=== PATIENT | male | born 1970 | race Caucasian/White ===

== ENCOUNTER 2025-03-09 09:01 | Outpatient (AMB) | payer OTHER, SELFPAY ==
--- NOTE | 2025-03-09 09:01 | A.OFFPC_ITS ---
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 - Medication review Intake Note: establish care and meds review Dimension Specification Inspector Required: No Accompanied by: Self / Same As Patient Allergies prochlorperazine (From Compazine) Allergy (Mild, Verified 03/09/25 09:07) Hallucinations polypropylene Allergy (Mild, Uncoded 03/09/25 09:07) contrarest heart med Tobacco use date assessed: 03/09/25 Dental Screening Dental Screen Date: 03/09/25 Did you have a dental visit in the last 12 months?: Yes Did you have a dental problem in the last 6 months where you did not have access to dental care?: No Was dental information given to patient?: Patient has dentist HPI HPI Comments History of Present Illness Details History of Present Illness The patient is a 54-year-old male presenting for management of chronic conditions and medication refills. Narcolepsy: - The patient has narcolepsy, requiring management by a sleep specialist and use of a BiPAP machine at night. Psoriasis: - The patient has psoriasis, which has i mproved with the change in humidity after moving from [place]. Eczema: - The patient reports having eczema, whi ch has also shown improvement with the change in climate. 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 Chronic Fatigue Syndrome: - The patient experiences chronic fatigu e syndrome, limiting his ability to perform physical activities and requiring extended recovery periods after exertion. Orthostatic Intolerance: - The patient reports orthostatic intole sukhjinder, experiencing fatigue and inability to stand for long periods. Prinzmetal's Angina: - The patient has a history of Prinzmeta l's angina, managed with calcium channel blockers such as felodipine. History of Myocardial Infarction: - The patient had a myocardial infarctio n attributed to Prinzmetal's angina, with no coronary blockages identified. Health Maintenance - Blood panels ordered including CBC, co mprehensive metabolic panel, TSH, folate, B12, vitamin D, cholesterol, hepatitis B, C, and HIV screening. Review of Systems - Neurological: Reports narcolepsy, uses BiPAP at night. - Dermatological: Reports psoriasis and eczema, both improving with climate change. - Musculoskeletal: Reports inability to make a full fist due to psoriatic arthritis. - Cardiovascular: Reports history of Beena nzmetal's angina and myocardial infarction, managed with felodipine. - General: Reports chronic fatigue syndr ome and orthostatic intolerance, limiting physical activity. 10-point ROS reviewed and negative excep t as noted in HPI Past Medical History - Narcolepsy, managed with BiPAP at [facility]. - Psoriasis, improved with climate lee e. - Eczema, improved with climate change. - Psoriatic Arthritis, affecting hand fu nction. - Chronic Fatigue Syndrome, limiting phy sical activity. - Orthostatic Intolerance, causing fatig ue and inability to stand for long periods. - Prinzmetal's Angina, managed with radha dipine. - History of Myocardial Infarction, no c oronary blockages identified. Physical Exam General: Well-appearing, in no acute distress. Vital signs: Within normal limits. HEENT: Normocephalic, atraumatic. PERRLA, EOMI. Conjunctiva clear, sclera anicteric. Oropharynx clear, mucous membranes moist. TMs intact bilaterally. Neck: Supple, no lymphadenopathy, no thyromegaly, no JVD or carotid bruits. Cardiovascular: RRR, normal S1/S2, no murmurs, rubs, or gallops. Peripheral pulses 2+ and symmetric. No edema. Respiratory: Lungs clear to auscultation bilaterally, no wheezes, rales, or rhonchi. Normal effort. Abdomen: Soft, non-tender, non-distended. Normoactive bowel sounds. No hepatosplenomegaly, no masses. MSK: Full range of motion, no joint swelling or deformity. Normal gait. Skin: Warm, dry, intact. No rashes, lesions, or pallor. Neuro: Alert and oriented x3. Cranial nerves II-XII intact. Strength 5/5 throughout. Sensation intact. Reflexes 2+ symmetric. Normal coordination and gait. Psych: Appropriate mood and affect. Normal judgment and insight.General: Well- appearing, in no acute distress. Discussion Notes I discussed the patient's chronic conditions and the need for specialist referrals, including pulmonology, rheumatology, cardiology, and sleep medicine. We reviewed the importance of regular blood work to monitor his health status and medication management. I emphasized the need for follow-up appointments to ensure comprehensive care. Plan 1. Narcolepsy - Referral to a sleep specialist for isaiah oing management and BiPAP usage at night. 2. Psoriasis - Monitor skin condition and adjust thang tment as needed based on climate changes. 3. Eczema - Continue monitoring and managing sympt oms, noting improvement with climate change. 4. Psoriatic Arthritis - Referral to rheumatology for managemen t of joint symptoms and functional limitations. 5. Chronic Fatigue Syndrome - Encourage pacing of activities to emery ge fatigue and prevent exacerbation of symptoms. 6. Orthostatic Intolerance - Monitor symptoms and consider cardiolo gy referral for further evaluation. 7. Prinzmetal's Angina - Continue management with felodipine an d monitor for symptoms of angina. 8. History Of Myocardial Infarction - Regular cardiology follow-up to [facility] and prevent future events. Patient Instructions - Follow up with referred specialists fo r comprehensive management of chronic conditions. - Use the patient portal to communicate medication needs and updates. - Monitor symptoms and report any signif icant changes to your healthcare provider. [facility] Medical History (Updated 03/09/25 @ 09:20 by Gene Samayoa MD) History of PA (myocardial infarction) Uses continuous positive airway pressure (CPAP) ventilation at home Arthritis with psoriasis Chronic fatigue syndrome Prinzmetal angina Family History (Updated 03/09/25 @ 09:03 by Henrique Campos MA) Father No problems noted. Mother No problems noted. Social History Housing: Apartment Alcohol intake: current Alcohol intake frequency: does not drink Patient Tobacco Use Status: Never used Tobacco service: No Current occupational status: disabled Cognitive needs: No Hearing needs: No Vision needs: No Questionnaire PHQ-9 Over the last 2 weeks, how often have you been bothered by any of the following problems? 1. Little interest or pleasure in doing things: not at all 2. Feeling down, depressed, or hopeless: not at all 3. Trouble falling or staying asleep, or sleeping too much: not at all 4. Feeling tired or having little energy: not at all 5. Poor appetite or overeating: not at all 6. Feeling bad about yourself - or that you are a failure or have let yourself or your family down: not at all 7. Trouble concentrating on things, such as reading the newspaper or watching television: not at all 8. Moving or speaking so slowly that other people could have noticed. Or the opposite - being so fidgety or restless that you have been moving around a lot more than usual: not at all 9. Thoughts that you would be better off or of hurting yourself in some way: not at all Total score: 0 Depression Screening Interpretation: Negative Depression Screening Done: Yes Source: Developed by Drs. Edison Slade, Britta Brantley, Tate Hansen and colleagues, with an educational jai from [employer]. Thrive Questionnaire Date Thrive assessed: 03/07/25 I am a: Patient What is your living situation today?: I have a steady place to live Within the past 12 months, did the food you bought not last and you didn't have the money to get more?: Never true Within the past 12 months, did you worry whether your food would run out before you got money to buy more?: Never true Do you have trouble paying for medicines?: No Do you have trouble getting transportation to medical appointments?: No Do you have trouble paying your heating and electricity bill?: No Do you have trouble taking care of your child, family member or friend?: No Do you have trouble with day-to-day activities such as bathing, preparing meals, shopping, managing finances, etc.?: Yes Are you currently unemployed and looking for a job?: I choose not to answer this question Are you interested in more education?: No THRIVE Score: 0 AUDIT C Alcohol Use Questionnaire (AUDIT-C) 1. How often do you have a drink containing alcohol?: Never 3. How often do you have six or more drinks on one occasion?: Never Total Score: 0 AURELIANO-7 AMB Questionnaire AURELIANO-7 Date AURELIANO - 7 assessed: 03/09/25 Feeling nervous, anxious, or on edge: 1 = Several days Not being able to stop or control worryin = Several days Worrying too much about different things: 1 = Several days Trouble relaxin = Several days Being so restless that it is hard to sit still: 0 = Not at all Becoming easily annoyed or irritable: 1 = Several days Feeling afraid as if something awful might happen: 1 = Several days Total AURELIANO-7 score (0-4 normal; 5-9 mild; 10-14 moderate; 15-21 severe): 6 Source: Developed by Drs. Edison Slade, Britta Brantley, Tate Hansen and colleagues, with an educational jai from [employer]. Physical exam (Primary Care) Tobacco/Smoking Status: Tobacco use Status Tobacco use date assessed 03/09/25 03/09/25 09:04 Patient Tobacco Use Status Never used Tobacco 03/09/25 09:04 Depression Screening Interpretation: Negative Thrive Assessment: Date of Thrive Assessment Date Thrive assessed 03/07/25 03/09/25 09:04 Coding Level of Care Code New Pt Level 3 (82555) Diagnoses Establishing care with new doctor, encounter for Z76. Routine lab draw Z01. Encounter for screening, unspecified Z13.9 Counseling, unspecified Z71.9 Screening for HIV (human immunodeficiency virus) Z11.4 Screening for depression Z13.31 Screening for diabetes mellitus Z13.1 Screening for lipoid disorders Z13.220 Hypertension screen Z13.6 Class 2 obesity E66.812 Prinzmetal angina I20.1 Chronic fatigue syndrome G93.32 Arthritis with psoriasis L40.50 Uses continuous positive airway pressure (CPAP) ventilation at home Z99.89 Narcolepsy G47.419 History of PA (myocardial infarction) I25.2 Assessment & Plan Assessment & Plan (1) Establishing care with new doctor, encounter for: Code(s): Z76.89 - Persons encountering health services in other specified circumstances (2) Routine lab draw: Code(s): Z01.89 - Encounter for other specified special examinations (3) Encounter for screening, unspecified: Code(s): Z13.9 - Encounter for screening, unspecified (4) Counseling, unspecified: Code(s): Z71.9 - Counseling, unspecified (5) Screening for HIV (human immunodeficiency virus): Code(s): Z11.4 - Encounter for screening for human immunodeficiency virus [HIV] (6) Screening for depression: Code(s): Z13.31 - Encounter for screening for depression (7) Screening for diabetes mellitus: Code(s): Z13.1 - Encounter for screening for diabetes mellitus (8) Screening for lipoid disorders: Code(s): Z13.220 - Encounter for screening for lipoid disorders (9) Hypertension screen: Code(s): Z13.6 - Encounter for screening for cardiovascular disorders (10) Class 2 obesity: Code(s): E66.812 - Obesity, class 2 (11) Prinzmetal angina: Code(s): I20.1 - Angina pectoris with documented spasm Category: Medical (12) Chronic fatigue syndrome: Code(s): G93.32 - Myalgic encephalomyelitis/chronic fatigue syndrome Category: Medical (13) Arthritis with psoriasis: Code(s): L40.50 - Arthropathic psoriasis, unspecified Category: Medical (14) Uses continuous positive airway pressure (CPAP) ventilation at home: Code(s): Z99.89 - Dependence on other enabling machines and devices Category: Medical (15) Narcolepsy: Code(s): G47.419 - Narcolepsy without cataplexy (16) History of PA (myocardial infarction): Code(s): I25.2 - Old myocardial infarction Category: Medical Plan Orders: Orders Complete Blood Count Auto Diff Today Z13.9 - Encounter for screening, unspecified, Z76.89 - Persons encountering health services in other specified circumstances Hemoglobin A1c Today Z13.9 - Encounter for screening, unspecified, Z76.89 - Persons encountering health services in other specified circumstances Hepatitis B Surface Antigen Today Z13.9 - Encounter for screening, unspecified, Z76.89 - Persons encountering health services in other specified circumstances HIV Ab/Ag Today Z13.9 - Encounter for screening, unspecified, Z76.89 - Persons encountering health services in other specified circumstances Lipid Panel Today Z13.9 - Encounter for screening, unspecified, Z76.89 - Persons encountering health services in other specified circumstances UA CC w/rflx Micro + Cult Today Z13.9 - Encounter for screening, unspecified, Z76.89 - Persons encountering health services in other specified circumstances Comprehensive Met. Panel Today Z13.9 - Encounter for screening, unspecified, Z76.89 - Persons encountering health services in other specified circumstances Hepatitis B Surface Antibody Today Z13.9 - Encounter for screening, unspecified, Z76.89 - Persons encountering health services in other specified circumstances Hepatitis C Antibody Today Z13.9 - Encounter for screening, unspecified, Z76.89 - Persons encountering health services in other specified circumstances Vitamin B12 and Folate Today Z13.9 - Encounter for screening, unspecified, Z76.89 - Persons encountering health services in other specified circumstances Vitamin D 1,25 dihydroxy Today Z13.9 - Encounter for screening, unspecified, Z76.89 - Persons encountering health services in other specified circumstances Referrals Rheumatology Referral G93.32 - Myalgic encephalomyelitis/chronic fatigue syndrome, L40.50 - Arthropathic psoriasis, unspecified Cardiology Referral I20.1 - Angina pectoris with documented spasm, I25.2 - Old myocardial infarction Pulmonology Referral G47.419 - Narcolepsy without cataplexy, Z99.89 - Dependence on other enabling machines and devices Sleep Medicine Referral G47.419 - Narcolepsy without cataplexy, G93.32 - Myalgic encephalomyelitis/chronic fatigue syndrome, Z99.89 - Dependence on other enabling machines and devices
[2025-03-09 09:10] VITALS: BP 108/80; PULSE 78; RESP 16; TEMP 36.8; O2SAT 95; BMI 36.2
== END 2025-03-09 09:35 | disposition home or self-care (01) ==
LOC: HO.HMCFMS 09:02
PROVIDERS: PCP Student in an Organized Health Care Education/Training Program; Visit Provider Student in an Organized Health Care Education/Training Program
DX: E66.812 Obesity, class 2 (principal); I20.1 Angina pectoris with documented spasm; G93.32 Myalgic encephalomyelitis/chronic fatigue syndrome; L40.50 Arthropathic psoriasis, unspecified; Z99.89 Dependence on other enabling machines and devices; G47.419 Narcolepsy without cataplexy; I25.2 Old myocardial infarction

== ENCOUNTER 2025-03-09 09:01 | Outpatient (REF) | payer OTHER, SELFPAY ==
--- OUTSIDE RECORDS SUMMARY | 2025-03-09 11:44 | XMS_ITS | Encounter Summary ---
Author Organization [facility] Address [address] [place] [address] Phone Care Team Providers Care Hammer Fitter Name Role Phone Pcp, Unknown Primary Care Provider Unavailabl e Reason for Referral * MRI/CAT Scan - Closed Specialty Diagnoses / Procedures Referred By Contac t Referred To Contact Radiology Diagnoses Adrenal mass Procedures MRI Abdomen System, Provider Not In, PhD [employer] [address] Referral ID Status Reason Start Date Expiration Date Visits Re quested Visits Authorized [id number] Closed 12/14/2024 12/14/2025 1 1 Encounter Details Date Type Department Care Team (Late st Contact Info) Description 12/14/2024 Transcribe Orders [facility] Department [address] [place] [id number] System, Provider Not In, PhD [address] [address] Adrenal mass (Primary Dx) Social History Tobacco Use Types Packs/Day Years Used Date Smoking Tobacco: Never Assessed Sex and Gender Information Value Date Recorded Sex Assigned at Not on file Legal Sex Male 4:13 PM EDT Gender Identity Not on file Sexual Orientation Not on file documented as of this encounter Plan of Treatment Not on file documented as of this encounter Results * MRI ABDOMEN WITH AND WITHOUT CONTRAST (01/07/2025 7:45 AM EDT) Anatomical Region Laterality Modality Abdomen Magnetic Resonan ce 01/17/2025 9:25 AM EDT Impressions 01/17/2025 9:33 AM EDT 2.6 cm benign, lipid rich right adrenal adenoma. Narrative 01/17/2025 9:33 AM EDT MRI ABDOMEN WITH AND WITHOUT CONTRAST Referring clinician's provided indication for this examination in [facility]: Outside Radiology Order; adrenal mass Review of the Electronic Medical Record reveals an additional history of: Outside CT coronary angiography 06/29/2023 describes a 2.5 cm right adrenal adenoma. TECHNIQUE: Multiplanar MR imaging of the abdomen was performed using T1, T2, fat saturated, and diffusion weighted techniques. Dynamic multiphase imaging was also performed after administration of an intravenous gadolinium contrast agent. COMPARISON: None FINDINGS: Lower Chest: No effusions. Liver: 14 mm right lobe hepatic hemangioma (4:15; 13:40). No suspicious liver lesions. Biliary: Cholecystectomy. No biliary ductal dilatation. Spleen: No splenomegaly or focal lesion. Pancreas: No masses or ductal dilatation. Adrenal Glands: 2.6 x 2.4 cm right adrenal nodule with signal loss on chemical shift imaging consistent with a benign lipid rich adenoma. Normal left adrenal. Kidneys/Ureters: Punctate right renal cyst. No solid mass or hydronephrosis. Bowel: No dilatation or wall thickening. Small hiatal hernia. Peritoneum/Retroperitoneum: No masses or fluid. Lymph Nodes: No lymphadenopathy. Vessels: No abdominal aortic aneurysm. Patent portal vein. Replaced left hepatic artery arising from the left gastric. Bones/Soft Tissues: No focal marrow replacing lesions. Procedure Note Sumeet Foley MD - 01/17/2025 MRI ABDOMEN WITH AND WITHOUT CONTRAST Referring clinician's provided indication for this examination in Epic:Outside Radiology Order; adrenal mass Review of the Electronic Medical Record reveals an additional history of:Outside CT coronary angiography 06/29/2023 describes a 2.5 cm right adrenaladenoma. TECHNIQUE: Multiplanar MR imaging of the abdomen was performed using T1,T2, fat saturated, and diffusion weighted techniques. Dynamic multiphaseimaging was also performed after administration of an intravenousgadolinium contrast agent. COMPARISON: None FINDINGS: Lower Chest: No effusions. Liver: 14 mm right lobe hepatic hemangioma (4:15; 13:40). No suspiciousliver lesions. Biliary: Cholecystectomy. No biliary ductal dilatation. Spleen: No splenomegaly or focal lesion. Pancreas: No masses or ductal dilatation. Adrenal Glands: 2.6 x 2.4 cm right adrenal nodule with signal loss onchemical shift imaging consistent with a benign lipid rich adenoma. Normalleft adrenal. Kidneys/Ureters: Punctate right renal cyst. No solid mass orhydronephrosis. Bowel: No dilatation or wall thickening. Small hiatal hernia. Peritoneum/Retroperitoneum: No masses or fluid. Lymph Nodes: No lymphadenopathy. Vessels: No abdominal aortic aneurysm. Patent portal vein. Replaced lefthepatic artery arising from the left gastric. Bones/Soft Tissues: No focal marrow replacing lesions. IMPRESSION: 2.6 cm benign, lipid rich right adrenal adenoma. us Provider Not In System PhD IMG MR ABDOMEN Final Result documented in this encounter Visit Diagnoses Diagnosis Adrenal mass- Primary Unspecified disorder of adrenal glands Adrenal mass Unspecified disorder of adrenal glands documented in this encounter Care Teams Hammer Fitter Relationship Specialty Start Date End Date Pcp, Unknown PCP - General 12/09/24 documented as of this encounter Additional Source Comments The information contained in this document represents components of the legal health record. It is not the complete legal health record.[facility]
--- OUTSIDE RECORDS SUMMARY | 2025-03-09 11:44 | XMS_ITS | Clinical Summary ---
Author Organization [facility] Address [address] [place] [address] Phone Care Team Providers Care Telecommunications Field Engineer Name Role Phone Pcp, Unknown Primary Care Provider Unavailabl e Allergies Active Allergy Reactions Criticality Noted Date Comments Prochlorperazine Mental Status Change High Encounters Date Type Department Care Team Description 01/07/2025 6:47 AM EDT - 01/07/2025 11:59 PM EDT Hospital Encounter [address] [address] System, Provider Not In, PhD Unknown, Unknown, MD Discharge Disposition: Home or Self Care 12/14/2024 Procedure Pass [address] [address] 12/14/2024 Transcribe Orders Virtual Department [address] [place] [id number] System, Provider Not In, PhD Adrenal mass (Primary Dx) from Last 3 Months Social History Tobacco Use Types Packs/Day Years Used Date Smoking Tobacco: Never Assessed Education Answer Date Recorded Are you interested in more education? Not on zachary e 12/20/2024 Are you concerned about learning? Not on file 12/20/2024 No 12/20/2024 No 12/20/2024 Digital Access Answer Date Recorded No 12/20/2024 No 12/20/2024 Reliable internet access at home? Not on file 12/20/2024 Device with a working camera? Not on file Sex and Gender Information Value Date Recorded Sex Assigned at Not on file Legal Sex Male 4:13 PM EDT Gender Identity Not on file Sexual Orientation Not on file Last Filed Vital Signs Vital Sign Reading Time Taken Comments Blood Pressure - - Pulse - - Temperature - - Respiratory Rate - - Oxygen Saturation - - Inhaled Oxygen Concentration - - Weight 120.2 kg (265 lb) 01/01/2025 10:34 AM EDT Height 180.3 cm (5' 11 ) 01/01/2025 10:34 AM EDT Body Mass Index 36.96 01/01/2025 10:34 AM EDT Plan of Treatment Not on file Medical Devices Not on file Procedures Procedure Name Priority Date/Time Associated Diagnosis Comments MRI ABDOMEN WITH AND WITHOUT CONTRAST Routine 01/07/2025 7:45 AM EDT Adrenal mass from Last 3 Months Results * MRI ABDOMEN WITH AND WITHOUT CONTRAST (01/07/2025 7:45 AM EDT) Anatomical Region Laterality Modality Abdomen Magnetic Resonan ce 01/17/2025 9:25 AM EDT Impressions 01/17/2025 9:33 AM EDT 2.6 cm benign, lipid rich right adrenal adenoma. Narrative 01/17/2025 9:33 AM EDT MRI ABDOMEN WITH AND WITHOUT CONTRAST Referring clinician's provided indication for this examination in Epic: Outside Radiology Order; adrenal mass Review of [...] System PhD IMG MR ABDOMEN Final Result from Last 3 Months [facility] [address] [place] [id number] MEDICARE PART A & B 1 [address] Dozier [id number] MEDICARE PART A & B 1 [address]IDA Dozier [id number] MEDICARE PART A & B MEDICARE PART A & B MEDICARE PART A & B MEDICARE PART A & B Care Teams Telecommunications Field Engineer Relationship Specialty Start Date End Date Pcp, Unknown PCP - General 12/09/24 Additional Source Comments The information contained in this document represents components of the legal health record. It is not the complete legal health record.[facility]
--- OUTSIDE RECORDS SUMMARY | 2025-03-09 11:44 | XMS_ITS | Encounter Summary ---
Author Organization [facility] Address [address] [place] [address] Phone Care Team Providers Care Stator Winder Name Role Phone Pcp, Unknown Primary Care Provider Unavailabl e Encounter Details Date Type Department Care Team (Late st Contact Info) Description 12/14/2024 Procedure Pass [facility], [address] [address] Social History Tobacco Use Types Packs/Day Years Used Date Smoking Tobacco: Never Assessed Sex and Gender Information Value Date Recorded Sex Assigned at Not on file Legal Sex Male 4:13 PM EDT Gender Identity Not on file Sexual Orientation Not on file documented as of this encounter Plan of Treatment Not on file documented as of this encounter Visit Diagnoses Not on filedocumented in this encounter Care Teams Stator Winder Relationship Specialty Start Date End Date Pcp, Unknown PCP - General 12/09/24 documented as of this encounter Additional Source Comments The information contained in this document represents components of the legal health record. It is not the complete legal health record.[facility]
[2025-03-09 13:26] LABS: Appearance Urine Clear; Glucose Urine UA Negative (Negative); PH 5.5 (5.0-9.0); Specific Gravity - Urine 1.015 (1.005-1.025)
[2025-03-09 13:43] LABS: MANUAL DIFF FLAG NO
[2025-03-09 13:48] LABS: Hematocrit 49.1 % (42.0-52.0); Hemoglobin 16.1 g/dl (14.0-18.0); Imm Gran Abs Auto 0.02 X10*3/uL (0.00-0.03); Imm Gran Pct Auto 0.3 % (0.0-0.4); Lymphocytes Absolute Auto 1.1 X10*3/uL (1.2-4.9); Mean Corpuscular HGB Conc 32.8 g/dl (31.0-36.0); Mean Corpuscular Hemoglobin 28.5 pg (27.0-33.0); Mean Corpuscular Volume 86.9 fL (80.0-98.0); NRBC Abs Auto 0.000 X10*3/uL (0.0-0.012); NRBC Pct Auto 0.0 /100WBC (0.0-0.2); Platelet Count 267 X10*3/uL (160-400); Red Blood Count 5.65 X10*6/uL (4.60-5.80); White Blood Count 7.5 X10*3/uL (4.8-10.8)
[2025-03-09 14:09] LABS: Alanine Aminotransferase 65 U/L (0-40); Albumin Level 4.4 g/dL (3.5-5.0); Alkaline Phosphatase 157 U/L (39-117); Anion Gap 11 (12-20); Aspartate Amino Transferase 35 U/L (5-37); Blood Urea Nitrogen 11 mg/dL (9-16); Calcium 9.0 mg/dL (8.4-10.2); Carbon Dioxide 29 mmol/L (22-29); Chloride 105 mmol/L (96-108); Cholesterol 128 mg/dL (<200); Estimated Glomerular Filt Rate > 60; HDL Cholesterol 40 mg/dL (>40); Potassium 4.1 mmol/L (3.3-5.1); Sodium 141 mmol/L (135-145); Total Protein 7.5 g/dL (6.5-8.0); Triglycerides 129 mg/dL (<150)
[2025-03-09 14:30] LABS: Folate 12.8 ng/mL (> or = 4.0); Vitamin B12 702 pg/mL (200-900)
[2025-03-10 08:32] LABS: HBS Num1 0.82 mIU/mL (0-7.99); HBsAGNum1 0.36 S/CO (0.00-0.99); HIV Num 1 0.04 S/CO (0.00-0.99); Hepatitis B Surface Antigen Negative (Negative); ~HepC Num1 0.09 S/CO (0.00-0.79); ~Hepatitis B Surface Antibody NONREACTIVE (Nonreactive); ~Hepatitis C Antibody Nonreactive (Nonreactive)
[2025-03-14 19:59] LABS: VITAMIN D (1,25 OH) D3 66 pg/mL; Vit D (1,25-Dihydroxy) Total 66 pg/mL (18-72); Vitamin D (1,25 OH) D2 <8 pg/mL
== END 2025-03-09 09:02 | disposition home or self-care (01) ==
LOC: HO.HKASLDS 09:01
PROVIDERS: PCP Student in an Organized Health Care Education/Training Program; Visit Provider Student in an Organized Health Care Education/Training Program
DX: Z76.89 Persons encountering health services in other specified circumstances (principal); Z01.89 Encounter for other specified special examinations; Z13.9 Encounter for screening, unspecified; Z71.9 Counseling, unspecified; Z11.4 Encounter for screening for human immunodeficiency virus [HIV]; Z13.31 Encounter for screening for depression; Z13.1 Encounter for screening for diabetes mellitus; Z13.220 Encounter for screening for lipoid disorders; Z13.6 Encounter for screening for cardiovascular disorders; E66.812 Obesity, class 2; I20.1 Angina pectoris with documented spasm; G93.32 Myalgic encephalomyelitis/chronic fatigue syndrome; L40.50 Arthropathic psoriasis, unspecified; Z99.89 Dependence on other enabling machines and devices; G47.419 Narcolepsy without cataplexy; I25.2 Old myocardial infarction
CPT/HCPCS: 36415; 80053; 80061; 81003; 82607; 82652; 82746; 83036; 85025; 86706; 86803; 87340; 87389; 96127

== ENCOUNTER 2025-03-10 10:17 | Outpatient (AMB) | payer OTHER, SELFPAY ==
[2025-03-10 10:31] VITALS: BP 100/60; PULSE 68; TEMP 36.9; O2SAT 98; BMI 36.6
--- NOTE | 2025-03-10 10:31 | AM.OFFWIN_ITS ---
Intake Vital Signs 03/10/25 10:31 Height 6 ft Weight 270 lb BMI 36.6 BP 100/60 Blood Pressure Location Lt brachial Position Sitting Pulse 68 Pulse Source Pulse Oximeter Temp 98.5 F Temp Source Oral Pulse Oximetry (%) 98 Oxygen Delivery Method Room Air Intake Visit Reasons: ep sore throat and fatigue cough Intake Note: pt presents with sore throat x3 days, fatigue and cough Patient Tobacco Use Status: Never used Tobacco Allergies prochlorperazine (From Compazine) Allergy (Mild, Verified 03/09/25 09:07) Hallucinations polypropylene Allergy (Mild, Uncoded 03/09/25 09:07) contrarest heart med Do you need a note to return to daycare/school/sports/work: No HPI HPI Comments History of Present Illness Details History - The patient is a 54-year-old male pres enting with a sore throat and cough. - The sore throat began a few days ago a nd has been persistent, leading to a subsequent cough. - The patient uses a BIPAP machine at [facility], which has made breathing more difficult due to the cough. - There is significant fluid accumulatio n in both ears, which is causing discomfort and potential infection risk. - The patient denies fever, sinus pain, and ear pain, but reports productive cough. - The patient has orthostatic intoleranc e, requiring static exercises and extended recovery time after physical activity. Physical Exam General: Cooperative, healthy appearing, comfortable and no acute distress Orientation/consciousness: Patient oriented x3 Limitations: No limitations Head: Normal to inspection Ears: Hearing grossly normal bilaterally, EAC normal bilaterally, TM's with fluid bilaterally R>L Nose: Normal external nose present, Normal nares present and No nasal discharge present Face and sinus: Normal facial exam and Yes sinuses nontender Mouth: Normal oral and palatal mucosa present and moist mucous membranes Throat: Yes tonsils normal, Yes uvula midline. Posterior oropharynx erythema, no exudates Eyes: Appearance normal, both eyes and all related structures Neck: Normal visual inspection, full ROM Respiratory: Clear to auscultation bilaterally. Normal respiratory effort, able to speak in complete sentences, not actively coughing, no respiratory distress, not tachypneic, no tripod positioning and no use of accessory muscles Cardiovascular: Regular rate and rhythm. Normal S1 and S2 Skin: No rashes or lesions noted Neuro: Patient oriented x3 Extremities: Normal to inspection and Yes no clubbing, cyanosis or edema Review of Systems - Respiratory: Reports sore throat and p roductive cough. Denies dyspnea, fever, and sinus pain. - Ears: Denies ear pain. All systems reviewed and are unremarkable except as noted in HPI and above [facility] Medical History (Updated 03/10/25 @ 11:00 by Margret Rios PA-C) History of [place] (myocardial infarction) Uses continuous positive airway pressure (CPAP) ventilation at home Arthritis with psoriasis Chronic fatigue syndrome Prinzmetal angina Family History (Updated 03/09/25 @ 09:03 by Henrique Campos MA) Father No problems noted. Mother No problems noted. Social History (Updated 03/09/25 @ 09:09 by Henrique Campos MA) Housing: Apartment Alcohol intake: current Alcohol intake frequency: does not drink Patient Tobacco Use Status: Never used Tobacco service: No Current occupational status: disabled Cognitive needs: No Hearing needs: No Vision needs: No Physical Exam Vital Signs: Last Vital Signs Temp 98.5 F 03/10/25 10:31 Pulse 68 03/10/25 10:31 BP 100/60 03/10/25 10:31 Pulse Ox 98 03/10/25 10:31 Oxygen Delivery Method Room Air 03/10/25 10:31 BMI result Body Mass Index 36.6 Assessment & Plan Assessment & Plan (1) URI, acute: Code(s): J06.9 - Acute upper respiratory infection, unspecified Plan: Plan Patient was informed and verbally consented to the use of an ambient scribe for clinic note documentation during this visit. VSS, pt well appearing and PE remarkable for . 1. Viral Upper Respiratory Infection - A respiratory panel was conducted to identify the specific virus. - The patient was advised to use Flonase nasal spray to help clear nasal congestion and fluid in the ears. - Zyrtec was recommended for daily use to manage allergy symptoms. - Can add a decongestant if needed, other OTC meds for symptoms. - Work note declined. - The patient was advised to follow up with their primary care physician to assess resolution though this could take many weeks to resolve. Orders: Orders Resp Pathogen Panel - [facility] [place] Today J06.9 - Acute upper respiratory infection, unspecified Coding Level of Care Code Est Pt Level 3 (69262) Diagnoses URI, acute J06.9
--- OUTSIDE RECORDS SUMMARY | 2025-03-10 10:51 | XMS_ITS | Clinical Summary ---
Author Organization [facility] Address [address] [place] [address] Phone Care Team Providers Care Pipe Joints Supervisor Name Role Phone Pcp, Unknown Primary Care Provider Unavailabl e Allergies Active Allergy Reactions Criticality Noted Date Comments Prochlorperazine Mental Status Change High Encounters Date Type Department Care Team Description 01/07/2025 6:47 AM EDT - 01/07/2025 11:59 PM EDT Hospital Encounter [address] [address] System, Provider Not In, PhD Unknown, Unknown, MD Discharge Disposition: Home or Self Care 12/14/2024 Procedure Pass [address] [address] 12/14/2024 Transcribe Orders Virtual Department [address] [place] [id number] System, Provider Not In, PhD Adrenal mass [...] Result from Last 3 Months [facility] [address] [place] [id number] MEDICARE PART A & B 1 LIDA Dozier [id number] MEDICARE PART A & B 1 LIDA Dozier [id number] MEDICARE PART A & B MEDICARE PART A & B MEDICARE PART A & B MEDICARE PART A & B Care Teams Pipe Joints Supervisor Relationship Specialty Start Date End Date Pcp, Unknown PCP - General 12/09/24 Additional Source Comments The information contained in this document represents components of the legal health record. It is not the complete legal health record.[facility]
--- OUTSIDE RECORDS SUMMARY | 2025-03-10 10:51 | XMS_ITS | Encounter Summary ---
Author Organization [facility] Address [address] [place] [address] Phone Care Team Providers Care Maintenance Mechanic Millwright Name Role Phone Pcp, Unknown Primary Care Provider Unavailabl e Reason for Referral * MRI/CAT Scan - Closed Specialty Diagnoses / Procedures Referred By Contac t Referred To Contact Radiology Diagnoses Adrenal mass Procedures MRI Abdomen System, Provider Not In, PhD [facility] [address] [address] Referral ID Status Reason Start Date Expiration Date Visits Re quested Visits Authorized [id number] Closed 12/14/2024 12/14/2025 1 1 Encounter Details Date Type Department Care Team (Late st Contact Info) Description 12/14/2024 Transcribe Orders [facility] Department [address] [place] [address] System, Provider Not In, PhD [address] [address] Adrenal mass (Primary Dx) Social History Tobacco [...] clinician's provided indication for this examination in [facility]: Outside Radiology Order; adrenal mass Review of [...] glands documented in this encounter Care Teams Maintenance Mechanic Millwright Relationship Specialty Start Date End Date Pcp, Unknown PCP - General 12/09/24 documented as of this encounter Additional Source Comments The information contained in this document represents components of the legal health record. It is not the complete legal health record.[facility]
--- OUTSIDE RECORDS SUMMARY | 2025-03-10 10:51 | XMS_ITS | Encounter Summary ---
Author Organization [facility] Address [address] [place] [address] Phone Care Team Providers Care Optical Effects Layout Person Name Role Phone Pcp, Unknown Primary Care Provider Unavailabl e Encounter Details Date Type Department Care Team (Late st Contact Info) Description 12/14/2024 Procedure Pass [facility], [address] [address] Social History Tobacco Use Types Packs/Day Years [...] on filedocumented in this encounter Care Teams Optical Effects Layout Person Relationship Specialty Start Date End Date Pcp, Unknown PCP - General 12/09/24 documented as of this encounter Additional Source Comments The information contained in this document represents components of the legal health record. It is not the complete legal health record.[facility]
== END 2025-03-10 11:00 | disposition home or self-care (01) ==
PROVIDERS: PCP Student in an Organized Health Care Education/Training Program; Visit Provider Physician Assistant
DX: J06.9 Acute upper respiratory infection, unspecified (principal)

== ENCOUNTER 2025-03-10 10:17 | Outpatient (REF) | payer OTHER, SELFPAY ==
[2025-03-10 14:45] LABS: Chlamydia pneumoniae PCR Not Detected (Not Detect.); Coronavirus 229E PCR Not Detected (Not Detect.); Coronavirus HKU1 PCR Not Detected (Not Detect.); Coronavirus NL63 PCR Not Detected (Not Detect.); Coronavirus OC43 PCR Not Detected (Not Detect.); RSV PCR Not Detected (Not Detect.); Rhino/Enterovirus PCR Detected (Not Detect.)
[2025-03-10 14:59] LABS: Influenza A H1 PCR Not Detected (Not Detect.); Influenza A H1-2009 PCR Not Detected (Not Detect.); Influenza A H3 PCR Not Detected (Not Detect.); SARS-CoV-2 PCR Not Detected (Not Detect.)
== END 2025-03-10 10:18 | disposition home or self-care (01) ==
LOC: HO.LAB 10:17
PROVIDERS: PCP Student in an Organized Health Care Education/Training Program; Visit Provider Physician Assistant
DX: J06.9 Acute upper respiratory infection, unspecified (principal); J02.9 Acute pharyngitis, unspecified; R05.9 Cough, unspecified
CPT/HCPCS: 87633

== ENCOUNTER 2025-03-16 09:44 | Outpatient (AMB) | payer OTHER, SELFPAY ==
[2025-03-16 09:56] VITALS: BP 115/71; PULSE 71; RESP 16; TEMP 36.9; O2SAT 95; BMI 36.1
--- NOTE | 2025-03-16 09:56 | A.OFFPC_ITS ---
Vital Signs 03/16/25 09:56 Height 6 ft Weight 266 lb 4 oz BMI 36.1 BP 115/71 Blood Pressure Location Rt brachial Position Sitting Respiration 16 Pulse 71 Pulse Source Pulse Oximeter Temp 98.5 F Temp Source Oral Pulse Oximetry (%) 95 Oxygen Delivery Method Room Air Intake Visit Reasons: 1 week follow up Intake Note: establish care and meds review Desizing Machine Operator Head End Required: No Accompanied by: Self / Same As Patient Allergies prochlorperazine (From Compazine) Allergy (Mild, Verified 03/16/25 10:03) Hallucinations polypropylene Allergy (Mild, Uncoded 03/09/25 09:07) contrarest heart med Tobacco use date assessed: 03/09/25 Dental Screening Dental Screen Date: 03/09/25 Did you have a dental visit in the last 12 months?: Yes Did you have a dental problem in the last 6 months where you did not have access to dental care?: No Was dental information given to patient?: Patient has dentist HPI HPI Comments History of Present Illness Details History of Present Illness The patient is a 54-year-old male presenting for follow-up on lab results and management of plantar fasciitis He is accompanied with his Plantar fasciitis: - The patient has been experiencing plan tar fasciitis for about six weeks, with severe pain exacerbated by prolonged walking. - Despite daily exercises and Advil use, symptoms persist, prompting a referral to podiatry. Prediabetes: - The patient's A1c is 6.3%, indicating prediabetes, with dietary changes advised to lower carbohydrate intake. - Previous slip tender consultations have informed the patient's dietary management strategies. Type 2 diabetes mellitus: - The patient has type 2 diabetes [facility], with an A1c of 6.3%, managed with intermittent Ozempic use which was not mentioned on the initial visit Elevated liver enzymes: - Elevated liver enzymes, ALT at 65 U/L and alkaline phosphatase at 157 U/L, warrant an abdominal ultrasound to rule out biliary issues. Review of Systems - Musculoskeletal: Reports severe stabbi ng pain in the foot, exacerbated by prolonged walking. - Endocrine: Reports awareness of dietar y restrictions due to prediabetes. - Gastrointestinal: Denies colic pain af ter eating. 10-point ROS reviewed and negative excep t as noted in HPI Past Medical History - Type 2 diabetes mellitus - History of kidney stones in the 20s Health Maintenance - Hepatitis B vaccination recommended fo r diabetics - Dietary modifications to reduce carboh ydrate intake for prediabetes management Physical Exam General: Well-appearing, in no acute distress. Vital signs: Within normal limits. HEENT: Normocephalic, atraumatic. PERRLA, EOMI. Conjunctiva clear, sclera anicteric. Oropharynx clear, mucous membranes moist. TMs intact bilaterally. Neck: Supple, no lymphadenopathy, no thyromegaly, no JVD or carotid bruits. Cardiovascular: RRR, normal S1/S2, no murmurs, rubs, or gallops. Peripheral pulses 2+ and symmetric. No edema. Respiratory: Lungs clear to auscultation bilaterally, no wheezes, rales, or rhonchi. Normal effort. Abdomen: Soft, non-tender, non-distended. Normoactive bowel sounds. No hepatosplenomegaly, no masses. MSK: Full range of motion, no joint swelling or deformity. Normal gait. Reports plantar fasciitis, causing pain with prolonged walking. Skin: Warm, dry, intact. No rashes, lesions, or pallor. Neuro: Alert and oriented x3. Cranial nerves II-XII intact. Strength 5/5 throughout. Sensation intact. Reflexes 2+ symmetric. Normal coordination and gait. Psych: Appropriate mood and affect. Normal judgment and insight. Plan 1. Plantar Fasciitis - Referral to podiatry for further evalu ation and management due to persistent symptoms despite conservative measures. 2. Prediabetes - Dietary modifications advised to reduc e carbohydrate intake and manage A1c levels. 3. Type 2 Diabetes Mellitus - Continue Ozempic for diabetes manageme nt, with emphasis on regular use. Needs a Dexcom G6 a G7 monitor due to insurance reasons 4. Elevated Liver Enzymes - Abdominal ultrasound ordered to invest igate potential biliary pathology due to elevated liver enzymes. Discussion Notes I discussed with the patient the importance of managing prediabetes through dietary modifications, specifically reducing carbohydrate intake. We also talked about the need for regular use of Ozempic for diabetes management. I recommended an abdominal ultrasound to investigate elevated liver enzymes, potentially due to biliary issues. Additionally, I advised a podiatry referral for persistent plantar fasciitis symptoms. We discussed the importance of hepatitis B vaccination for diabetics as a preventative measure. Patient was informed and verbally consented to the use of an ambient scribe for clinic note documentation during this visit. Patient Instructions - Follow up with podiatry for foot pain management. - Reduce carbohydrate intake to manage b lood sugar levels. - Use Ozempic regularly as prescribed fo r diabetes management. - Schedule and complete the abdominal ul trasound as ordered. - Consider hepatitis B vaccination as re commended. [facility] Medical History (Updated 03/16/25 @ 10:20 by Gene Samayoa MD) Elevated liver enzymes Diabetes type 2 Plantar fasciitis History of [place] (myocardial infarction) Uses continuous positive airway pressure (CPAP) ventilation at home Arthritis with psoriasis Chronic fatigue syndrome Prinzmetal angina Family History Father No problems noted. Mother No problems noted. Social History Housing: Apartment Alcohol intake: current Alcohol intake frequency: does not drink Patient Tobacco Use Status: Never used Tobacco service: No Current occupational status: disabled Cognitive needs: No Hearing needs: No Vision needs: No Questionnaire PHQ-9 Over the last 2 weeks, how often have you been bothered by any of the following problems? 1. Little interest or pleasure in doing things: not at all 2. Feeling down, depressed, or hopeless: not at all 3. Trouble falling or staying asleep, or sleeping too much: not at all 4. Feeling tired or having little energy: not at all 5. Poor appetite or overeating: not at all 6. Feeling bad about yourself - or that you are a failure or have let yourself or your family down: not at all 7. Trouble concentrating on things, such as reading the newspaper or watching television: not at all 8. Moving or speaking so slowly that other people could have noticed. Or the opposite - being so fidgety or restless that you have been moving around a lot more than usual: not at all 9. Thoughts that you would be better off or of hurting yourself in some way: not at all Total score: 0 Depression Screening Interpretation: Negative Depression Screening Done: Yes Source: Developed by Drs. Edisno Slade, Britta Brantley, Tate Hansen and colleagues, with an educational jai from [employer]. Thrive Questionnaire Date Thrive assessed: 03/07/25 I am a: Patient What is your living situation today?: I have a steady place to live Within the past 12 months, did the food you bought not last and you didn't have the money to get more?: Never true Within the past 12 months, did you worry whether your food would run out before you got money to buy more?: Never true Do you have trouble paying for medicines?: No Do you have trouble getting transportation to medical appointments?: No Do you have trouble paying your heating and electricity bill?: No Do you have trouble taking care of your child, family member or friend?: No Do you have trouble with day-to-day activities such as bathing, preparing meals, shopping, managing finances, etc.?: Yes Are you currently unemployed and looking for a job?: I choose not to answer this question Are you interested in more education?: No Please select the resources that you would like help with: None Currently or been in a relationship where the following occur: No concerns reported THRIVE Score: 0 AURELIANO-7 AMB Questionnaire AURELIANO-7 Date AURELIANO - 7 assessed: 03/09/25 Feeling nervous, anxious, or on edge: 1 = Several days Not being able to stop or control worryin = Several days Worrying too much about different things: 1 = Several days Trouble relaxin = Several days Being so restless that it is hard to sit still: 0 = Not at all Becoming easily annoyed or irritable: 1 = Several days Feeling afraid as if something awful might happen: 1 = Several days Total AURELIANO-7 score (0-4 normal; 5-9 mild; 10-14 moderate; 15-21 severe): 6 Source: Developed by Drs. Edison Slade, Britta Brantley, Tate Hansen and colleagues, with an educational jai from [employer]. Physical exam (Primary Care) Vital Signs: Last Vital Signs Temp 98.5 F 03/16/25 09:56 Pulse 71 03/16/25 09:56 Resp 16 03/16/25 09:56 BP 115/71 03/16/25 09:56 Pulse Ox 95 03/16/25 09:56 Oxygen Delivery Method Room Air 03/16/25 09:56 BMI result Body Mass Index 36.1 Tobacco/Smoking Status: Tobacco use Status Tobacco use date assessed 03/09/25 03/16/25 10:01 Patient Tobacco Use Status Never used Tobacco 03/16/25 10:01 PHQ-9: PHQ-9 Score PHQ-9: Total score 0 03/16/25 10:02 Depression Screening Interpretation: Negative Thrive Assessment: Date of Thrive Assessment Date Thrive assessed 03/07/25 03/16/25 10:01 Currently or been in a relationship where the following occur: No concerns reported Coding Level of Care Code Est Pt Level 3 (33351) Diagnoses Plantar fasciitis M72.2 Diabetes type 2 E11.9 Elevated liver enzymes R74.8 Encounter to discuss test results Z71.2 Dyslipidemia E78.5 Assessment & Plan Assessment & Plan (1) Plantar fasciitis: Code(s): M72.2 - Plantar fascial fibromatosis Category: Medical (2) Diabetes type 2: Code(s): E11.9 - Type 2 diabetes mellitus without complications Category: Medical (3) Elevated liver enzymes: Code(s): R74.8 - Abnormal levels of other serum enzymes Category: Medical (4) Encounter to discuss test results: Code(s): Z71.2 - Person consulting for explanation of examination or test findings (5) Dyslipidemia: Code(s): E78.5 - Hyperlipidemia, unspecified Plan Which was not mentioned on the initial visit which was not mentioned on the initial visit which Orders: Orders US abdomen limited Today R74.8 - Abnormal levels of other serum enzymes Referrals Nurse Navigator Referral R73.03 - Prediabetes Podiatry Referral M72.2 - Plantar fascial fibromatosis Medications: New semaglutide (Ozempic) 1 mg (0.75 mL) subcut QWEEK 3 mL 0RF E11.9 - Type 2 diabetes mellitus without complications
--- OUTSIDE RECORDS SUMMARY | 2025-03-16 11:35 | XMS_ITS | Encounter Summary ---
Author Organization [facility] Address [address] [place] [address] Phone Care Team Providers Care Workforce Manager Name Role Phone Pcp, Unknown Primary Care Provider Unavailabl e Encounter Details Date Type Department Care Team (Late st Contact Info) Description 12/14/2024 Procedure Pass [facility], [address] [address] Social History Tobacco Use Types Packs/Day Years [...] on filedocumented in this encounter Care Teams Workforce Manager Relationship Specialty Start Date End Date Pcp, Unknown PCP - General 12/09/24 documented as of this encounter Additional Source Comments The information contained in this document represents components of the legal health record. It is not the complete legal health record.[facility]
--- OUTSIDE RECORDS SUMMARY | 2025-03-16 11:35 | XMS_ITS | Clinical Summary ---
Author Organization [facility] Address [address] [place] [address] Phone Care Team Providers Care Program Developer Name Role Phone Pcp, Unknown Primary Care Provider Unavailabl e Allergies Active Allergy Reactions Criticality Noted Date Comments Prochlorperazine Mental Status Change High Encounters Date Type Department Care Team Description 01/07/2025 6:47 AM EDT - 01/07/2025 11:59 PM EDT Hospital Encounter [address] [address] System, Provider Not In, PhD Unknown, Unknown, MD Discharge Disposition: Home or Self Care 12/14/2024 Procedure Pass [address] [address] 12/14/2024 Transcribe Orders Virtual Department [address] [place] [address] System, Provider Not In, PhD Adrenal mass [...] Result from Last 3 Months Insurance [facility] [address] [place] [id number] MEDICARE PART A & B 1 LIDA Dozier [id number] MEDICARE PART A & B 1 LIDA Dozier [id number] MEDICARE PART A & B MEDICARE PART A & B MEDICARE PART A & B MEDICARE PART A & B Care Teams Program Developer Relationship Specialty Start Date End Date Pcp, Unknown PCP - General 12/09/24 Additional Source Comments The information contained in this document represents components of the legal health record. It is not the complete legal health record.[facility]
--- OUTSIDE RECORDS SUMMARY | 2025-03-16 11:36 | XMS_ITS | Encounter Summary ---
Author Organization [facility] Address [address] [place] [address] Phone Care Team Providers Care Spring Salvage Worker Name Role Phone Pcp, Unknown Primary Care Provider Unavailabl e Reason for Referral * MRI/CAT Scan - Closed Specialty Diagnoses / Procedures Referred By Contac t Referred To Contact Radiology Diagnoses Adrenal mass Procedures MRI Abdomen System, Provider Not In, PhD [facility] [address] Referral ID Status Reason Start Date Expiration Date Visits Re quested Visits Authorized [id number] Closed 12/14/2024 12/14/2025 1 1 Encounter Details Date Type Department Care Team (Late st Contact Info) Description 12/14/2024 Transcribe Orders [facility] Department [address] [place] [id number] System, Provider Not In, PhD [address] [address] Adrenal mass (Primary Dx) Social History Tobacco [...] clinician's provided indication for this examination in [facility]: Outside Radiology Order; adrenal mass Review [...] glands documented in this encounter Care Teams Spring Salvage Worker Relationship Specialty Start Date End Date Pcp, Unknown PCP - General 12/09/24 documented as of this encounter Additional Source Comments The information contained in this document represents components of the legal health record. It is not the complete legal health record.[facility]
== END 2025-03-16 10:25 | disposition home or self-care (01) ==
LOC: HO.HMCFMS 09:45
PROVIDERS: PCP Student in an Organized Health Care Education/Training Program; Visit Provider Student in an Organized Health Care Education/Training Program
DX: M72.2 Plantar fascial fibromatosis (principal); E11.69 Type 2 diabetes mellitus with other specified complication; R74.8 Abnormal levels of other serum enzymes; Z71.2 Person consulting for explanation of examination or test findings; E78.5 Hyperlipidemia, unspecified

== ENCOUNTER 2025-03-27 08:23 | Outpatient (AMB) | payer OTHER, SELFPAY ==
--- NOTE | 2025-03-27 08:28 | MHC.OFFVIS ---
Vital Signs 03/27/25 08:29 Height 6 ft Weight 266 lb 6 oz BMI 36.1 BP 120/72 Blood Pressure Location Rt brachial Position Sitting Pulse 82 Pulse Source Pulse Oximeter Pulse Oximetry (%) 96 Oxygen Delivery Method Room Air Intake Visit Reasons: INP - Narcolepsy wo cataplexy, ME syndrome Intake Note: Patient presents INK PRINTER Narcolepsy/DULCE. Uses BiPAP machine at night. Using 2 liters of O2. Needs new set up for new supplies. Last sleep study from [place](in records). Establish new care. Does not sleep through the night. wakes up 1-2 times a night. Goes to bed 9-10pm and wakes up at 6am. Chronic fatigue through the day. Takes naps 1-4hrs depending on active through . Accompanied by: Spouse Allergies prochlorperazine (From Compazine) Allergy (Mild, Verified 03/27/25 08:31) Hallucinations polypropylene Allergy (Mild, Uncoded 03/09/25 09:07) [facility] HPI Comments Details: 54 year old male with h/o of Narcolepsy presents for an evaluation of central sleep evaluation, he is referred to us by his PCP. December 2010 he had an FL/ Echo was normal, he was later diagnosed with Prinzemetal angina, the acetylcholine challenge produced vasopasms. He also has Psoraitic Arthritis and is on Methotrexate. He has chronic fatigue syndrome. MSLT Jun 2024 diagnosed with Narcolepsy, he is on BIPAP therapy with 2L of O2. His FH is + for dad FL and passed at 58 and brother FL and seizure disorder he passed at 53. He has a f/u with netting inspector and circular saw filer coming up. He goes to bed at 9pm, and has multiple arousals at night. He snores, gasps for air, and stops breathing and his O2 level decreases to 70s at night. When he exerts himself, he is exhausted the entire day. He denies morning headaches and Bruxism. He can fall asleep easily and anywhere. He does not drive as he has easy fatigue-ability. He goes to the gym and works out with a senior technical trainer 2x a week, and he has to take a 2 hour nap daily. He has ortho-static hypotension, and dizzines when he sits up straight in a chair. He has anxiety, claustrophobia, fear of flying and fear of small closed spaces. He has been to counseling, meditates and does breathing exercises daily. He takes Sertraline 150mg po daily and this helps with his depression. He has RLS / PLMD and has an urge to move his legs all the time, they are uncomfortable, though tolerable. His memory is poor, he has brain fog and recall of words is worse. He does chess puzzles daily to help keep his mind active. Denies smoking or alcohol / MJ use. [facility] Medical History Elevated liver enzymes Diabetes type 2 Plantar fasciitis History of FL (myocardial infarction) Uses continuous positive airway pressure (CPAP) ventilation at home Arthritis with psoriasis Chronic fatigue syndrome Prinzmetal angina Family History Father No problems noted. Mother No problems noted. Social History Housing: Apartment Alcohol intake: current Alcohol intake frequency: does not drink Patient Tobacco Use Status: Never used Tobacco service: No Current occupational status: disabled Cognitive needs: No Hearing needs: No Vision needs: No Physical Exam Vital Signs: Last Vital Signs Pulse 82 03/27/25 08:29 BP 120/72 03/27/25 08:29 Pulse Ox 96 03/27/25 08:29 Oxygen Delivery Method Room Air 03/27/25 08:29 BMI result Body Mass Index 36.1 Results Reviewed Results Reviewed: Jun 2024 MSLT reviewed with pt. ESS 21 No hypnotics administered. 458 min of sleep recorded, with 358 min of sleep, latency to sleep onset was 12min, latency to first epoch of REM following sleep onset was 20 min. Sleep efficiency was 76%. Stage I 4%, Stage II 52%, Stage III 20%, REM 24%. He has Primary Central sleep apnea predominantly on Auto Bilevel PAP regimen. 14/16gsI01, coupled to 2L of O2. 11 central apneas, 1 mixed apnea, 61 hypopneas, AHI of 12.6 Respiratory events were less frequent during REM. REM latency was pathologicallly short at 20 min. No DULCE.Position did not play a role. 187 min of suppine sleep was recorded. Labs requested from PCP. Assessment & Plan Assessment & Plan (1) Narcolepsy: Code(s): G47.419 - Narcolepsy without cataplexy Category: Medical Qualifiers: Narcolepsy type: primary without cataplexy Qualified Code(s): G47.419 - Narcolepsy without cataplexy (2) Excessive daytime sleepiness: Code(s): G47.19 - Other hypersomnia Category: Medical (3) Central sleep apnea: Code(s): G47.31 - Primary central sleep apnea Category: Medical Plan EDS / CSA on Auto Bipap level 14/12jiI57 coupled to 2L oxygen. MSLT - Reviewed with pt. from [facility] in [place], [place] Narcolepsy Start Modafinil 100mg po for 2 weeks at 8am, then will titrate dose to 200mg po daily at 8am for 30 days and will evaluate for efficacy. Labs to r/o deficiencies. EEG - to r/o Seizure disorder RX to [facility] re: supply order Nasal cannula re: mask fitting as required. F/U in 3 months Orders: Orders EEG electroencephalogram Today G47.419 - Narcolepsy without cataplexy Ferritin Today G47.419 - Narcolepsy without cataplexy Vitamin B12 and Folate Today G47.419 - Narcolepsy without cataplexy Comprehensive Met. Panel Today G47.19 - Other hypersomnia Methylmalonic Acid Today G47.419 - Narcolepsy without cataplexy, G47.9 - Sleep disorder, unspecified, R53.83 - Other fatigue Homocysteine Today G47.419 - Narcolepsy without cataplexy, G47.9 - Sleep disorder, unspecified, R53.83 - Other fatigue Vitamin D 25-OH Total Today G47.419 - Narcolepsy without cataplexy TSH reflex Free T4 Today G47.419 - Narcolepsy without cataplexy IRON PROFILE Today G47.419 - Narcolepsy without cataplexy, G47.9 - Sleep disorder, unspecified, R53.83 - Other fatigue Complete Blood Count no Diff Today G47.19 - Other hypersomnia Medications: New modafinil take one 100mg tablet by mouth at 8am daily for 2 weeks then will titrate up to 200mg po daily for 2 weeks. 100 mg PO DAILY 14 tabs 0RF narcolepsy disorder 2 weeks MDD 100mg G47.419 - Narcolepsy without cataplexy modafinil Once completing the 14 days of 100mg po daily dose, star 200mg po daily at 8am by mouth once daily for 30 days. Will evalute for refills at this time 200 mg PO QAM 30 tabs 0RF narcolepsy 1 month MDD 200mg G47.419 - Narcolepsy without cataplexy modafinil Once completing the 14 days of 100mg po daily dose, (Mar 27-) Apr 11 may start with the 200mg po daily at 8am once daily for 30 days. Will evalute for refills at this time 200 mg PO QAM 30 tabs 0RF narcolepsy 1 month MDD 200mg G47.419 - Narcolepsy without cataplexy Patient Instructions: Sleep Hygiene provided: set a scheduled bedtime and wake time to help regulate the circadian rhythm and balance the release of pituitary hormones. Sleep in a dark room, temperatures below 68 degrees, and no devices n bed. Limit caffeinated products 6 hours prior to bed, and limit fluids 2-4 hours prior to bed. Gentle night yoga, diffusing essential oils, and playing soft music can be relaxing. Please complete the following fasting labs to rule out deficiencies. CBC/CMP/ B12/ Vit D/ TSH/ Homocysteine and MMA/ Ferritin. Coding Level of Care Code New Pt Level 4 (38844) Diagnoses Primary narcolepsy without cataplexy G47.419 Narcolepsy type: primary without cataplexy Excessive daytime sleepiness G47.19 Central sleep apnea G47.31 Sleep Questionnaire Difficulty falling asleep: No Difficulty staying asleep?: Yes (at night with nightmares) Number of arousals: 2x Snoring: Yes Witnessed apneas: Yes Gasping arousals: Yes Nocturia: Yes GERD: No Vivid dreams: Yes Acting out dreams: Yes Abnormal behavior in sleep: Yes (kicking ) Abnormal movements in sleep: Yes Morning headaches: No Excessive daytime sleepiness: Yes Daytime naps: Yes Restless legs: No Hallucinations: No Sleep paralysis: No Drop attacks: Yes (gets very dizzy and catches himself) Sleep Study: Yes (MSLT Jun 2024 Narcolepsy) CPAP: No (BIPAP )
[2025-03-27 08:29] VITALS: BP 120/72; PULSE 82; O2SAT 96; BMI 36.1
--- OUTSIDE RECORDS SUMMARY | 2025-03-27 08:49 | XMS_ITS | Encounter Summary ---
Author Organization [facility] Address [address] [place] [address] Phone Care Team Providers Care Tombstone Erector Name Role Phone Pcp, Unknown Primary Care Provider Unavailabl e Reason for Referral * MRI/CAT Scan - Closed Specialty Diagnoses / Procedures Referred By Contac t Referred To Contact Radiology Diagnoses Adrenal mass Procedures MRI Abdomen System, Provider Not In, PhD [employer] [address] Referral ID Status Reason Start Date Expiration Date Visits Re quested Visits Authorized [id number] Closed 12/14/2024 12/14/2025 1 1 Encounter Details Date Type Department Care Team (Late st Contact Info) Description 12/14/2024 Transcribe Orders [facility] Department [address] [place] [id number] System, Provider Not In, PhD [address] [address] Adrenal mass (Primary Dx) Social History Tobacco [...] clinician's provided indication for this examination in [facility]: Outside Radiology Order; adrenal mass Review [...] glands documented in this encounter Care Teams Tombstone Erector Relationship Specialty Start Date End Date Pcp, Unknown PCP - General 12/09/24 documented as of this encounter Additional Source Comments The information contained in this document represents components of the legal health record. It is not the complete legal health record.[facility]
--- OUTSIDE RECORDS SUMMARY | 2025-03-27 08:49 | XMS_ITS | Encounter Summary ---
Author Organization [facility] Address [address] [place] [address] Phone Care Team Providers Care Area Sales Manager Name Role Phone Pcp, Unknown Primary Care Provider Unavailabl e Encounter Details Date Type Department Care Team (Late st Contact Info) Description 12/14/2024 Procedure Pass [facility], [address] [address] Social History Tobacco Use Types Packs/Day Years [...] on filedocumented in this encounter Care Teams Area Sales Manager Relationship Specialty Start Date End Date Pcp, Unknown PCP - General 12/09/24 documented as of this encounter Additional Source Comments The information contained in this document represents components of the legal health record. It is not the complete legal health record.[facility]
--- OUTSIDE RECORDS SUMMARY | 2025-03-27 08:49 | XMS_ITS | Clinical Summary ---
Author Organization [facility] Address [address] [place] [address] Phone Care Team Providers Care Hairspring Ii Inspector Name Role Phone Pcp, Unknown Primary Care Provider Unavailabl e Allergies Active Allergy Reactions Criticality Noted Date Comments Prochlorperazine Mental Status Change High Encounters Date Type Department Care Team Description 01/07/2025 6:47 AM EDT - 01/07/2025 11:59 PM EDT Hospital Encounter [address] [address] System, Provider Not In, PhD Unknown, Unknown, MD Discharge Disposition: Home or Self Care 12/14/2024 Procedure Pass [address] [address] from Last 3 Months Social History Tobacco [...] clinician's provided indication for this examination in [facility]:Outside Radiology Order; adrenal mass Review of the [...] Result from Last 3 Months Insurance , [address] [place] [id number] MEDICARE PART A & B MEDICARE PART A & B MEDICARE PART A & B MEDICARE PART A & B MEDICARE PART A & B MEDICARE PART A & B Care Teams Hairspring Ii Inspector Relationship Specialty Start Date End Date Pcp, Unknown PCP - General 12/09/24 Additional Source Comments The information contained in this document represents components of the legal health record. It is not the complete legal health record.[facility]
== END 2025-03-27 09:24 | disposition home or self-care (01) ==
LOC: HO.HSMS 08:24
PROVIDERS: PCP Student in an Organized Health Care Education/Training Program; Visit Provider Physician Assistant Medical
DX: G47.419 Narcolepsy without cataplexy (principal); G47.19 Other hypersomnia; G47.31 Primary central sleep apnea
CPT/HCPCS: 99204

== ENCOUNTER 2025-03-28 08:44 | Outpatient (AMB) | payer OTHER, SELFPAY ==
[2025-03-28 08:49] VITALS: BP 138/72; PULSE 67; TEMP 36.9; O2SAT 97; BMI 36.3
--- NOTE | 2025-03-28 08:49 | A.OFFPC_ITS ---
Vital Signs 03/28/25 08:49 Height 6 ft Weight 268 lb BMI 36.3 BP 138/72 Blood Pressure Location Lt brachial Position Sitting Pulse 67 Pulse Source Pulse Oximeter Temp 98.5 F Temp Source Oral Pulse Oximetry (%) 97 Oxygen Delivery Method Room Air Intake Visit Reasons: 1 week follow up Accompanied by: Self / Same As Patient Allergies prochlorperazine (From Compazine) Allergy (Mild, Verified 03/28/25 08:49) Hallucinations Tobacco use date assessed: 03/28/25 Dental Screening Dental Screen Date: 03/28/25 Did you have a dental visit in the last 12 months?: Yes Was dental information given to patient?: Patient has dentist HPI HPI Comments History of Present Illness Details History of Present Illness The patient is a 54-year-old male presenting with chronic lower back pain and plantar fasciitis. Chronic lower back pain: - The patient reports experiencing sharp pain localized to the tailbone for the past four months, exacerbated by sitting on non-padded chairs and alleviated slightly by walking. - The pain is rated at 3-4/10 in severit y and does not radiate down the legs. - The patient engages in stretching exer cises for two hours daily, which have not significantly improved the condition. - The patient takes 400 mg of Advil as n eeded for pain management. Plantar fasciitis: - The patient has been experiencing plan tar fasciitis, which limits his ability to walk long distances. - Wearing house shoes on wooden floors p rovides some relief. - An appointment with a housemaid is sc heduled for further evaluation. Fecal incontinence: - The patient has been experiencing feca l incontinence for approximately eight years, often occurring after exertion without prior sensation. - Extensive gastrointestinal workups hav e been conducted previously, with no definitive treatment established. Adrenal mass: - A right adrenal mass was identified, i nitially noted to have grown but determined to be non-cancerous. - A follow-up adrenal CT or MRI series w as recommended, with imaging conducted at [facility]. Anxiety disorder: - The patient reports worsening anxiety since relocating, with a history of flight-related anxiety preventing travel. - The patient has not been able to fly f or years and has not tried myla zodiazepines for acute anxiety management. Narcolepsy: - The patient was diagnosed with narcole psy by a neurologist, with Modafinil prescribed for management. Review of Systems - Musculoskeletal: Reports sharp lower b ack pain localized to the tailbone, exacerbated by sitting on non-padded chairs and alleviated slightly by walking. Denies radiation of pain down the legs. - Neurological: Reports narcolepsy diagn osed by a neurologist. Denies any new neurological symptoms. - Gastrointestinal: Reports fecal incont inence occurring after exertion without prior sensation. - Psychological: Reports worsening anxie ty since relocating, with a history of flight-related anxiety preventing travel. 10-point ROS reviewed and negative excep t as noted in HPI Past Medical History - Chronic lower back pain - Plantar fasciitis - Fecal incontinence - Adrenal mass - Anxiety disorder - Narcolepsy Health Maintenance - Scheduled podiatry appointment for cresencio ntar fasciitis evaluation. - Referral to gastroenterology for fecal incontinence evaluation. - Endocrinology referral for adrenal mas s follow-up. - Behavioral health referral for anxiety management. Physical Exam General: Well-appearing, in no acute distress. Vital signs: Within normal limits. HEENT: Normocephalic, atraumatic. PERRLA, EOMI. Conjunctiva clear, sclera anicteric. Oropharynx clear, mucous membranes moist. TMs intact bilaterally. Neck: Supple, no lymphadenopathy, no thyromegaly, no JVD or carotid bruits. Cardiovascular: RRR, normal S1/S2, no murmurs, rubs, or gallops. Peripheral pulses 2+ and symmetric. No edema. Respiratory: Lungs clear to auscultation bilaterally, no wheezes, rales, or rhonchi. Normal effort. Abdomen: Soft, non-tender, non-distended. Normoactive bowel sounds. No hepatosplenomegaly, no masses. MSK: Full range of motion, no joint swelling or deformity. Normal gait. Reports sharp pain in the lower back, localized to the tailbone, rated 3-4/10, especially when rising from a non-padded chair. Skin: Warm, dry, intact. No rashes, lesions, or pallor. Neuro: Alert and oriented x3. Cranial nerves II-XII intact. Strength 5/5 throughout. Sensation intact. Reflexes 2+ symmetric. Normal coordination and gait. Psych: Appropriate mood and affect. Normal judgment and insight. Reports anxiety exacerbated by recent move and difficulty with flying due to anxiety. Plan 1. Chronic Lower Back Pain - Prescribed ibuprofen for pain manageme nt, with caution due to hypertension. - Referral to physical therapy for furth er management. 2. Plantar Fasciitis - Scheduled podiatry appointment for fur ther evaluation and management. 3. Fecal Incontinence - Referral to gastroenterology for furth er evaluation. 4. Adrenal Mass - Endocrinology referral for further bhavna luation and management. - MRI with adrenal mass protocol 5. Anxiety Disorder - Behavioral health referral for anxiety management. 6. Narcolepsy - Modafinil prescribed for management of narcolepsy. Discussion Notes During the consultation, I discussed the management of chronic lower back pain, including the use of ibuprofen with caution due to hypertension and referral to physical therapy. We also addressed plantar fasciitis with a scheduled podiatry appointment. For fecal incontinence, a referral to gastroenterology was made. The adrenal mass will be further evaluated by endocrinology. Anxiety management will be supported through a behavioral health referral. Narcolepsy is being managed with Modafinil. Patient was informed and verbally consented to the use of an ambient scribe for clinic note documentation during this visit. Patient Instructions - Take ibuprofen only when pain is unbea rable, due to hypertension. - Attend physical therapy sessions as sc heduled. - Follow up with podiatry for plantar fa sciitis evaluation. - Attend gastroenterology appointment fo r fecal incontinence evaluation. - Follow up with endocrinology for adren al mass evaluation. - Engage with behavioral health services for anxiety management. - Continue taking Modafinil as prescribe d for narcolepsy. Total time spent caring for the patient today was 30 minutes. This includes time spent before the visit reviewing the chart, time spent documenting, and time spent reviewing laboratory results, diagnostic imaging, medications, performing a medically necessary evaluation, counseling on diagnoses, care coordination, ordering appropriate tests, ordering appropriate medications, review of tests performed by other providers, reporting test results with the patient. [facility] Medical History (Updated 03/28/25 @ 09:21 by Gene Samayoa MD) Chronic lower back pain Adjustment disorder with anxiety Fecal incontinence Adrenal incidentaloma Elevated liver enzymes Diabetes type 2 Plantar fasciitis History of [place] (myocardial infarction) Uses continuous positive airway pressure (CPAP) ventilation at home Arthritis with psoriasis Chronic fatigue syndrome Prinzmetal angina Family History Father No problems noted. Mother No problems noted. Social History Housing: Apartment Alcohol intake: current Alcohol intake frequency: does not drink Patient Tobacco Use Status: Never used Tobacco service: No Current occupational status: disabled Cognitive needs: No Hearing needs: No Vision needs: No Questionnaire PHQ-9 Over the last 2 weeks, how often have you been bothered by any of the following problems? 1. Little interest or pleasure in doing things: not at all 2. Feeling down, depressed, or hopeless: not at all 3. Trouble falling or staying asleep, or sleeping too much: not at all 4. Feeling tired or having little energy: not at all 5. Poor appetite or overeating: not at all 6. Feeling bad about yourself - or that you are a failure or have let yourself o r your family down: not at all 7. Trouble concentrating on things, such as reading the newspaper or watching television: not at all 8. Moving or speaking so slowly that other people could have noticed. Or the opposite - being so fidgety or restless that you have been moving around a lot more than usual: not at all 9. Thoughts that you would be better off or of hurting yourself in some way: not at all Total score: 0 Depression Screening Interpretation: Negative Depression Screening Done: Yes Source: Developed by Drs. Edison Slade, Britta Brantley, Tate Hansen and colleagues, with an educational jai from [employer]. Thrive Questionnaire Date Thrive assessed: 03/28/25 I am a: Patient What is your living situation today?: I have a steady place to live Within the past 12 months, did the food you bought not last and you didn't have the money to get more?: Never true Within the past 12 months, did you worry whether your food would run out before you got money to buy more?: Never true Do you have trouble paying for medicines?: No Do you have trouble getting transportation to medical appointments?: No Do you have trouble paying your heating and electricity bill?: No Do you have trouble taking care of your child, family member or friend?: No Do you have trouble with day-to-day activities such as bathing, preparing meals, shopping, managing finances, etc.?: Yes Are you currently unemployed and looking for a job?: I choose not to answer this question Are you interested in more education?: No Please select the resources that you would like help with: None Currently or been in a relationship where the following occur: No concerns reported THRIVE Score: 0 AUDIT C Alcohol Use Questionnaire (AUDIT-C) 1. How often do you have a drink containing alcohol?: Never 3. How often do you have six or more drinks on one occasion?: Never Total Score: 0 AURELIANO-7 AMB Questionnaire AURELIANO-7 Date AURELIANO - 7 assessed: 03/28/25 Feeling nervous, anxious, or on edge: 1 = Several days Not being able to stop or control worryin = Several days Worrying too much about different things: 1 = Several days Trouble relaxin = Several days Being so restless that it is hard to sit still: 0 = Not at all Becoming easily annoyed or irritable: 1 = Several days Feeling afraid as if something awful might happen: 1 = Several days Total AURELIANO-7 score (0-4 normal; 5-9 mild; 10-14 moderate; 15-21 severe): 6 Source: Developed by Drs. Edison Slade, Britta Brantley, Tate Hansen and colleagues, with an educational jai from [employer]. Physical exam (Primary Care) Vital Signs: Last Vital Signs Temp 98.5 F 03/28/25 08:49 Pulse 67 03/28/25 08:49 BP 138/72 03/28/25 08:49 Pulse Ox 97 03/28/25 08:49 Oxygen Delivery Method Room Air 03/28/25 08:49 BMI result Body Mass Index 36.3 Tobacco/Smoking Status: Tobacco use Status Tobacco use date assessed 03/28/25 03/28/25 09:00 Patient Tobacco Use Status Never used Tobacco 03/28/25 09:00 PHQ-9: PHQ-9 Score PHQ-9: Total score 0 03/28/25 09:00 Depression Screening Interpretation: Negative Thrive Assessment: Date of Thrive Assessment Date Thrive assessed 03/28/25 03/28/25 09:00 Currently or been in a relationship where the following occur: No concerns reported Coding Level of Care Code Est Pt Level 4 (98541) Diagnoses Chronic lower back pain M54.50; G89.29 Plantar fasciitis M72.2 Fecal incontinence R15.9 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 Narcolepsy type: primary without cataplexy Anxiety disorder F41.9 Assessment & Plan Assessment & Plan (1) Chronic lower back pain: Code(s): M54.50 - Low back pain, unspecified; G89.29 - Other chronic pain Category: Medical (2) Plantar fasciitis: Code(s): M72.2 - Plantar fascial fibromatosis Category: Medical (3) Fecal incontinence: Code(s): R15.9 - Full incontinence of feces Category: Medical (4) Adrenal incidentaloma: Code(s): E27.8 - Other specified disorders of adrenal gland Category: Medical (5) Narcolepsy: Code(s): G47.419 - Narcolepsy without cataplexy Category: Medical Qualifiers: Narcolepsy type: primary without cataplexy Qualified Code(s): G47.419 - Narcolepsy without cataplexy (6) Anxiety disorder: Code(s): F41.9 - Anxiety disorder, unspecified Plan Orders: Orders PT Evaluation and Treatment Today G89.29 - Other chronic pain, M54.50 - Low back pain, unspecified Referrals Endocrinology Referral E27.8 - Other specified disorders of adrenal gland Gastroenterology Referral R15.9 - Full incontinence of feces Nurse Navigator Referral F43.22 - Adjustment disorder with anxiety Medications: New ibuprofen 800 mg PO Q8H 20 tabs 0RF blood-glucose sensor (Dexcom G6 Sensor device) As directed 3 ea 0RF E11.9 - Type 2 diabetes mellitus without complications blood-glucose transmitter (Dexcom G6 Transmitter device) As directed 1 ea 0RF E11.9 - Type 2 diabetes mellitus without complications
--- OUTSIDE RECORDS SUMMARY | 2025-03-28 09:27 | XMS_ITS | Clinical Summary ---
Author Organization [facility] Address [address] [place] [address] Phone Care Team Providers Care Stationary Engineer Name Role Phone Pcp, Unknown Primary Care Provider Unavailabl e Allergies Active Allergy Reactions Criticality Noted Date Comments Prochlorperazine Mental Status Change High Encounters Date Type Department Care Team Description 01/07/2025 6:47 AM EDT - 01/07/2025 11:59 PM EDT Hospital Encounter [address] [address] System, Provider Not In, PhD Unknown, Unknown, MD Discharge Disposition: Home or Self Care 12/14/2024 Procedure Pass [address] [address] from Last 3 Months Social History Tobacco [...] clinician's provided indication for this examination in [facility]:Outside Radiology Order; adrenal mass Review of [...] from Last 3 Months Insurance , [address] [place] [id number] MEDICARE PART A & B MEDICARE PART A & B MEDICARE PART A & B MEDICARE PART A & B MEDICARE PART A & B MEDICARE PART A & B Care Teams Stationary Engineer Relationship Specialty Start Date End Date Pcp, Unknown PCP - General 12/09/24 Additional Source Comments The information contained in this document represents components of the legal health record. It is not the complete legal health record.[facility]
--- OUTSIDE RECORDS SUMMARY | 2025-03-28 09:27 | XMS_ITS | Encounter Summary ---
Author Organization [facility] Address [address] [place] [address] Phone Care Team Providers Care Milk Wagon Driver Name Role Phone Pcp, Unknown Primary Care Provider Unavailabl e Encounter Details Date Type Department Care Team (Late st Contact Info) Description 12/14/2024 Procedure Pass [facility], [address] [address] Social History Tobacco Use Types Packs/Day Years [...] on filedocumented in this encounter Care Teams Milk Wagon Driver Relationship Specialty Start Date End Date Pcp, Unknown PCP - General 12/09/24 documented as of this encounter Additional Source Comments The information contained in this document represents components of the legal health record. It is not the complete legal health record.[facility]
--- OUTSIDE RECORDS SUMMARY | 2025-03-28 09:27 | XMS_ITS | Encounter Summary ---
Author Organization [facility] Address [address] [place] [address] Phone Care Team Providers Care Coal Mill Operator Name Role Phone Pcp, Unknown Primary Care Provider Unavailabl e Reason for Referral * MRI/CAT Scan - Closed Specialty Diagnoses / Procedures Referred By Contac t Referred To Contact Radiology Diagnoses Adrenal mass Procedures MRI Abdomen System, Provider Not In, PhD [employer] [address] Referral ID Status Reason Start Date Expiration Date Visits Re quested Visits Authorized [id number] Closed 12/14/2024 12/14/2025 1 1 Encounter Details Date Type Department Care Team (Late st Contact Info) Description 12/14/2024 Transcribe Orders [facility] Department [address] [place] [address] System, Provider Not In, PhD [address] [address] Adrenal mass (Primary Dx) Social History Tobacco [...] clinician's provided indication for this examination in [facility]: Outside Radiology Order; adrenal mass Review [...] glands documented in this encounter Care Teams Coal Mill Operator Relationship Specialty Start Date End Date Pcp, Unknown PCP - General 12/09/24 documented as of this encounter Additional Source Comments The information contained in this document represents components of the legal health record. It is not the complete legal health record.[facility]
== END 2025-03-28 09:20 | disposition home or self-care (01) ==
LOC: HO.HMCFMS 08:45
PROVIDERS: PCP Student in an Organized Health Care Education/Training Program; Visit Provider Student in an Organized Health Care Education/Training Program
DX: M54.50 Low back pain, unspecified (principal); G89.29 Other chronic pain; M72.2 Plantar fascial fibromatosis; R15.9 Full incontinence of feces; E27.8 Other specified disorders of adrenal gland; G47.419 Narcolepsy without cataplexy; F41.9 Anxiety disorder, unspecified

== ENCOUNTER 2025-04-11 09:54 | Outpatient (AMB) | payer OTHER, MEDICARE, SELFPAY ==
--- NOTE | 2025-04-11 10:11 | A.OFFVIS_ITS ---
Vital Signs 04/11/25 10:12 Height 5 ft 11 in Weight 260 lb BMI 36.3 Intake Visit Reasons: plantar fasciitis Intake Note: Edison is a 54 year old male who presents to the office today as a new patient referred by his PCP Dr. Samayoa for left foot Plantar Fasciitis. Pt states he has history of bone spur in both feet and a piece of bone floating in the ankle from a previous basketball injury. Patient has tried stretching exercises, supportive shoe wear, and OTC Ibuprofen. Patient found slight relief however when he walks for extended period of time the pain worsens. Allergies prochlorperazine (From Compazine) Allergy (Mild, Verified 04/11/25 10:35) Hallucinations HPI Comments Details: The patient is a 54-year-old male with a PMH as seen below presenting with left heel pain. The patient states the pain started a couple months ago, exacerbated by walking on uneven and hard floors without proper footwear. The patient reports that the pain is manageable when not walking for extended periods, but becomes severe during walks, especially over half a mile. The patient has been performing stretching exercises which have provided some relief. He has also started using house shoes avoiding barefoot walking to mitigate the pain indoors. The pain is primarily located in the heel and was previously along the arch. The patient has a history of bone spurs, which were identified during previous evaluations. There is also a history of an old basketball injury with an avulsion fracture in the left ankle, but this does not currently cause pain. The patient also reports having chronic fatigue syndrome, which affects his daily activities. He uses a BiPap machine at night. He states he takes Advil prn for pain with some relief. Denies any recent pedal injuries. Denies any other pedal concerns. [facility] Medical History (Updated 04/11/25 @ 10:25 by Irish Sewell DPM) Left foot pain Plantar fasciitis, left Calcaneal spur of left foot Other enthesopathy of left foot and ankle Chronic lower back pain Adjustment disorder with anxiety Fecal incontinence Adrenal incidentaloma Elevated liver enzymes Diabetes type 2 Plantar fasciitis History of [place] (myocardial infarction) Uses continuous positive airway pressure (CPAP) ventilation at home Arthritis with psoriasis Chronic fatigue syndrome Prinzmetal angina Family History Father No problems noted. Mother No problems noted. Social History Housing: Apartment Alcohol intake: current Alcohol intake frequency: does not drink Patient Tobacco Use Status: Never used Tobacco service: No Current occupational status: disabled Cognitive needs: No Hearing needs: No Vision needs: No Review of Systems Const Details: - Musculoskeletal: Reports left heel pain. - General: Reports chronic fatigue syndrome All systems reviewed & are unremarkable except as noted in HPI and below Physical Exam Vital Signs: BMI result Body Mass Index 36.3 Extrem Other: LLE Focused Physical Exam: Derm: Pre-hyperkeratotic lesion noted to the submet 1 area. No open lesions, abrasions, or wounds noted. No ecchymosis or discoloration noted. No clinical signs of infection. Skin supple and turgor WNL. Vasc: DP/PT pulses palpable. CFT < 3 secs. Temp gradient warm to warm. Pedal hair present. No varicosities noted. No edema noted. Neuro: Protective sensations grossly intact. MSK: Pain on palpation to the heel in the area of the medial calcaneal tubercle and central aspect of the calcaneus. No pain on palpation to the lateral calcaneal tubercle. Negative windlass mechanism. Mildly antalgic gait unassisted. No crepitus noted. ROM of the forefoot, hindfoot, and ankle WNL. Assessment & Plan Assessment & Plan (1) Other enthesopathy of left foot and ankle: Code(s): M77.52 - Other enthesopathy of left foot and ankle Category: Medical (2) Calcaneal spur of left foot: Code(s): M77.32 - Calcaneal spur, left foot Category: Medical (3) Plantar fasciitis, left: Code(s): M72.2 - Plantar fascial fibromatosis Category: Medical (4) Left foot pain: Code(s): M79.672 - Pain in left foot Category: Medical Plan Patient was informed and verbally consented to the use of an ambient scribe for clinic note documentation during this visit. I discussed with the patient the diagnosis of plantar fasciitis and the importance of maintaining a consistent stretching routine to alleviate symptoms. We reviewed the use of a night splint and its benefits, as well as the potential use of a Medrol Dosepak if conservative measures are insufficient. I advised avoiding barefoot walking and emphasized the importance of follow-up to monitor progress. - Recommend the use of a night splint to maintain dorsiflexion during sleep, starting with a few hours and gradually increasing duration - provided patient with night splint. - Continue with stretching exercises - provided patient plantar fascial exercise instructional form. - Continue taking Advil prn for pain. - Avoid barefoot walking to prevent exacerbation of plantar fasciitis. - Wear supportive shoe gear. - Consider Medrol dose marty or Meloxicam, PT, and/or steroid injection if pain persists. RTC in 1 month for re-evaluation. Coding Level of Care Code New Pt Level 4 (26862) Diagnoses Other enthesopathy of left foot and ankle M77.52 Calcaneal spur of left foot M77.32 Plantar fasciitis, left M72.2 Left foot pain M79.672 Time Spent (min) 45
[2025-04-11 10:12] VITALS: BMI 36.3
== END 2025-04-11 10:37 | disposition home or self-care (01) ==
PROVIDERS: PCP Student in an Organized Health Care Education/Training Program; Visit Provider Student in an Organized Health Care Education/Training Program
DX: M77.52 Other enthesopathy of left foot and ankle (principal); M77.32 Calcaneal spur, left foot; M72.2 Plantar fascial fibromatosis; M79.672 Pain in left foot
CPT/HCPCS: 99204

== ENCOUNTER 2025-04-18 12:46 | Outpatient (REF) | payer OTHER, MEDICARE, SELFPAY ==
--- NOTE | 2025-04-18 14:18 | EEG_ITS ---
Reason for Exam: G47.419 Narcolepsy Roomed Performed:?402 History: diabetes, plantar fascitis, [place], arthritis with psoriasis, chronic fatigue syndrome, Prinzmetal angina, narcolepsy- Patient reports memory is poor, brain fog and recall of words is worse Medication: no list avaialble Technical description Photic stimulation: completed Hyperventilation:?omitted Behavioral state: pleasant State of Consciousness: awake and sleep Skull defect: none Sedation: none Handedness: right Duration of study:?31 min 54 sec Description: This is a 16 channel EEG with an EKG lead. Patient is reported awake during the tracing. Background EEG rhythm is 12-14 hertz 5-100 microvolt posteriorly and lower amplitude fast anteriorly with occasional left temporal sharp waves.. Photic stimulation does not produce any significant driving. Hyperventilation was not performed.. Impression: Mildly abnormal EEG though I can not clearly define it as epilepsy. There mild left temporal abnormalities. I recommend longer evaluation with a 48 hour ambulatory EEG. [facility]
--- OUTSIDE RECORDS SUMMARY | 2025-04-18 16:06 | XMS_ITS | Clinical Summary ---
Author Organization [facility] Address [address] [place] [address] Phone Care Team Providers Care Ems Director Name Role Phone Pcp, Unknown Primary Care Provider Unavailabl e Allergies Active Allergy Reactions Criticality Noted Date Comments Prochlorperazine Mental Status Change High Social History Tobacco Use Types Packs/Day Years [...] on file Medical Devices Not on file Insurance LIDA Dozier [id number] MEDICARE PART [place] [id number] MEDICARE PART [place] [id number] MEDICARE PART A & B MEDICARE PART A & B MEDICARE PART A & B MEDICARE PART A & B Care Teams Ems Director Relationship Specialty Start Date End Date Pcp, Unknown PCP - General 12/09/24 Additional Source Comments The information contained in this document represents components of the legal health record. It is not the complete legal health record.[facility]
--- OUTSIDE RECORDS SUMMARY | 2025-04-18 16:07 | XMS_ITS | Encounter Summary ---
Author Organization [facility] Address [address] [place] [address] Phone Care Team Providers Care Drill Sharpener Name Role Phone Pcp, Unknown Primary Care Provider Unavailabl e Encounter Details Date Type Department Care Team (Late st Contact Info) Description 12/14/2024 Procedure Pass [facility], [address] [address] Social History Tobacco Use Types Packs/Day Years [...] on filedocumented in this encounter Care Teams Drill Sharpener Relationship Specialty Start Date End Date Pcp, Unknown PCP - General 12/09/24 documented as of this encounter Additional Source Comments The information contained in this document represents components of the legal health record. It is not the complete legal health record.[facility]
--- OUTSIDE RECORDS SUMMARY | 2025-04-18 16:07 | XMS_ITS | Encounter Summary ---
Author Organization [facility] Address [address] [place] [address] Phone Care Team Providers Care Sap Portal Architect Name Role Phone Pcp, Unknown Primary Care Provider Unavailabl e Reason for Referral * MRI/CAT Scan - Closed Specialty Diagnoses / Procedures Referred By Contac t Referred To Contact Radiology Diagnoses Adrenal mass Procedures MRI Abdomen System, Provider Not In, PhD Partners [employer] [address] Referral ID Status Reason Start Date Expiration Date Visits Re quested Visits Authorized [id number] Closed 12/14/2024 12/14/2025 1 1 Encounter Details Date Type Department Care Team (Late st Contact Info) Description 12/14/2024 Transcribe Orders [facility] Department [address] [place] [id number] System, Provider Not In, PhD [address] [address] Adrenal mass (Primary Dx) Social History Tobacco [...] clinician's provided indication for this examination in [facility]: Outside Radiology Order; adrenal mass Review of [...] glands documented in this encounter Care Teams Sap Portal Architect Relationship Specialty Start Date End Date Pcp, Unknown PCP - General 12/09/24 documented as of this encounter Additional Source Comments The information contained in this document represents components of the legal health record. It is not the complete legal health record.[facility]
== END 2025-04-18 12:47 | disposition home or self-care (01) ==
LOC: HO.NEURO 12:46
PROVIDERS: PCP Student in an Organized Health Care Education/Training Program; Visit Provider Physician Assistant Medical
DX: G47.419 Narcolepsy without cataplexy (principal)
CPT/HCPCS: 95819

== ENCOUNTER → 2025-04-18 14:18 | Outpatient (BNV) | payer OTHER, MEDICARE, SELFPAY | PROVIDERS: PCP Student in an Organized Health Care Education/Training Program; Visit Provider Psychiatry & Neurology Neurology | DX: G47.419 Narcolepsy without cataplexy (principal) | CPT/HCPCS: 95819 ==

== ENCOUNTER 2025-06-06 10:21 | Outpatient (AMB) | payer OTHER, MEDICARE, SELFPAY ==
--- NOTE | 2025-06-06 10:31 | MHC.OFFVIS ---
Vital Signs 06/06/25 10:32 Height 5 ft 11 in Weight 271 lb 2.697 oz BMI 37.8 BP 120/74 Blood Pressure Location Lt brachial Position Sitting Pulse 72 Pulse Source Pulse Oximeter Pulse Oximetry (%) 96 Oxygen Delivery Method Room Air Intake Visit Reasons: Dependence on enabling machines, NT2 It Professional Required: No Farm Laborer: Farm Laborer offered & declined Accompanied by: Self / Same As Patient Allergies prochlorperazine (From Compazine) Allergy (Mild, Verified 06/06/25 10:35) Hallucinations HPI Comments Details: The patient is here for pulmonary evaluation. The patient is a 54-year-old gentleman with a known history of pulmonary hypertension. Apparently the patient while living him [facility] was having hard time with his breathing. Having significant shortness of breath. Ultimately diagnosed with pulmonary hypertension. The patient did undergo a sleep study demonstrating a complex sleep apnea. He was placed on BiPAP. Subsequently after that he was then further evaluated with a multi latencies sleep study demonstrating evidence of idiopathic hypersomnia. No evidence of any narcolepsy as he does not have any of the other features. He was supposed to start medication but he had decided to not start any new medications specially since he was relocating to [place]. Currently seems to be doing okay he is tolerating the BiPAP. Will request access. He did follow-up with Neurology and they are making sure that he has all his supplies and making sure that he is on the adequate pressure. And also did prescribe him Provigil that he should be starting. He has not started as of yet. During the visit because of the shortness of breath and history of pulmonary hypertension we did go for a walking oximetry. The patient did have a low normal pulse ox above 92%. He was able to ambulate with a heart rate below 100. Overall he did well for the 6 minutes. He does use oxygen at nighttime when using the BiPAP. Initially when he was diagnosed with pulmonary hypertension he did require oxygen with activity. But clinically he is doing better. Will go ahead and request a chest x-ray at this time. He may need additional imaging studies. Also to note in 2023 he did undergo pulmonary function studies demonstrating no evidence of any obstructive nor restrictive ventilatory defects with a normal diffusing capacity. In addition to that the patient did undergo an echocardiogram in 2023 in [place] were demonstrated a normal pulmonary vascular pressure per the estimate. He will continue with the current medication therapy and follow-up in 3-4 months. If he has any issues prior to this she can always call further recommendations. [facility] Medical History (Updated 06/06/25 @ 22:02 by Cornel Demarco MD) Pulmonary hypertension Hypersomnia with sleep apnea Complex sleep apnea syndrome Left foot pain Plantar fasciitis, left Calcaneal spur of left foot Other enthesopathy of left foot and ankle Chronic lower back pain Adjustment disorder with anxiety Fecal incontinence Adrenal incidentaloma Elevated liver enzymes Diabetes type 2 Plantar fasciitis History of [place] (myocardial infarction) Uses continuous positive airway pressure (CPAP) ventilation at home Arthritis with psoriasis Chronic fatigue syndrome Prinzmetal angina Family History (Reviewed 03/28/25 @ 08:50 by Nahomy Sorensen [facility]) Father No problems noted. Mother No problems noted. Social History (Reviewed 06/06/25 @ 10:36 by Koki Olea [facility]) Housing: Apartment Alcohol intake: current Alcohol intake frequency: does not drink Patient Tobacco Use Status: Never used Tobacco service: No Current occupational status: disabled Cognitive needs: No Hearing needs: No Vision needs: No Review of Systems Const Denies fever(s) and Reports weight gain Eyes Reports no additional complaints ENT Reports dizziness and Denies hoarseness Card Denies chest pain and Reports dyspnea on exertion Resp Reports dyspnea on exertion and Denies wheezing GI Reports no additional complaints Musc Reports no additional complaints Skin/Breast Denies rash Neuro Reports dizziness Psych Reports no additional complaints Endo Reports no additional complaints Darrian/Lymph Reports no additional complaints Aller/Immun Denies wheezing Physical Exam Vital Signs: Last Vital Signs Pulse 72 06/06/25 10:32 BP 120/74 06/06/25 10:32 Pulse Ox 96 06/06/25 10:32 Oxygen Delivery Method Room Air 06/06/25 10:32 BMI result Body Mass Index 37.8 Const General: comfortable HEENT Head: Yes normocephalic Neck Neck: Yes supple Chest Chest palpation & inspection: normal inspection of the chest Resp Effort & Inspection: normal respiratory effort Auscultation: diminished lung sounds Cardio Heart sounds: S1 normal heart sound present and S2 normal heart sound present GI Palpation (GI): Soft to palpation Skin General skin exam: no rashes or lesions noted Extrem General: No clubbing and No cyanosis Assessment & Plan Assessment & Plan (1) Complex sleep apnea syndrome: Code(s): G47.39 - Other sleep apnea Category: Medical (2) Hypersomnia with sleep apnea: Code(s): G47.10 - Hypersomnia, unspecified; G47.30 - Sleep apnea, unspecified Category: Medical (3) Pulmonary hypertension: Code(s): I27.20 - Pulmonary hypertension, unspecified Category: Medical Plan continue BiPAP therapy with oxygen at night requesting access to BiPAP to download data. Neurology is following closely though he should start the stimulant therapy to start treating the persistent idiopathic hypersomnia. Chest x-ray will need to repeat his PFTs in the future the patient will follow-up with Cardiology. Will also need an echocardiogram. follow-up in 4 months Orders: Orders PFT pulmonary function test Today I27.20 - Pulmonary hypertension, unspecified XR chest 2V Today I27.20 - Pulmonary hypertension, unspecified Coding Level of Care Code New Pt Level 4 (59749) Diagnoses Complex sleep apnea syndrome G47.39 Hypersomnia with sleep apnea G47.10; G47.30 Pulmonary hypertension I27.20 Time Spent (min) 40
[2025-06-06 10:32] VITALS: BP 120/74; PULSE 72; O2SAT 96; BMI 37.8
== END 2025-06-06 11:17 | disposition home or self-care (01) ==
PROVIDERS: PCP Student in an Organized Health Care Education/Training Program; Referring Provider Student in an Organized Health Care Education/Training Program; Visit Provider Hospitalist
DX: G47.39 Other sleep apnea (principal); G47.10 Hypersomnia, unspecified; G47.30 Sleep apnea, unspecified; I27.20 Pulmonary hypertension, unspecified
CPT/HCPCS: 99204

== ENCOUNTER 2025-06-19 11:05 | Outpatient (AMB) | payer OTHER, MEDICARE, SELFPAY ==
--- NOTE | 2025-06-19 11:11 | A.OFFVIS_ITS ---
Vital Signs 06/19/25 11:19 Height 5 ft 11 in Weight 276 lb 14.409 oz BMI 38.6 BP 108/74 Blood Pressure Location Rt brachial Position Sitting Pulse 80 Pulse Source Pulse Oximeter Pulse Oximetry (%) 97 Oxygen Delivery Method Room Air Intake Visit Reasons: Other specified disorders of adrenal gland Intake Note: New patient internally referred by PCP for Adrenal Incidentaloma. Caddie Supervisor Required: No Accompanied by: Spouse Allergies prochlorperazine (From Compazine) Allergy (Mild, Verified 06/19/25 11:20) Hallucinations Medication List - Last Reconciled 06/19/25 by Edison Perez MD aspirin 81 mg PO DAILY atorvastatin 40 mg PO BEDTIME blood-glucose sensor (Dexcom G6 Sensor device) USE DIRECTED blood-glucose transmitter (Dexcom G6 Transmitter device) As directed cholecalciferol (vitamin D3) PO DAILY felodipine ER 10 mg PO DAILY folic acid 1 mg PO DAILY ibuprofen 800 mg PO Q8H lisinopril 10 mg PO DAILY metformin 500 mg PO DAILY methotrexate sodium 20 mg (8 x 2.5 mg) PO QWEEK omega-3 fatty acids (Fish Oil) PO DAILY semaglutide (Ozempic) 1 mg (0.75 mL) subcut QWEEK sertraline 150 mg PO spironolactone 25 mg PO DAILY HPI Comments Details: History of Present Illness The patient is a 54 year old male presenting for evaluation of a right adrenal mass. The mass was initially found on a CT angiogram in 2020, measuring approximately 2 cm and reported as benign. A more recent CT scan with contrast in the current year showed the mass was enlarging, though the size was not specified, and it was described as having an indeterminate density. According to the last CT scan report, the mass has been present since 2016. An MRI of the adrenals was reportedly performed at [facility], but the report is not currently available for review. The patient has a complex medical history including heart problems and pulmonary hypertension. He has a history of hypertension, for which he takes three medications including lisinopril, and reports his blood pressure is controlled around 120/80 mmHg. He reports a diagnosis of orthostatic intolerance, experiencing dizziness upon standing. The patient has been diagnosed with sleep apnea , gets tired easily, and uses oxygen at night. He has experienced anxiety issues since becoming sick. He has no personal history of cancer, but his mother of cancer. The patient was previously on Ozempic 1 mg, which initially helped with weight loss, but he stopped taking it about a month ago as it was no longer curbing his hunger. He uses a Dexcom and has noted some low blood sugar readings in the 40s without symptoms, which are thought to be compression lows. His weight has been stable since stopping Ozempic. He denies any symptoms of Kym syndrome or pheochromocytoma Medication History - Ozempic: Discontinued about one month ago due to lack of efficacy for appetite suppression. Medications - Lisinopril for hypertension - Unspecified antihypertensives (two additional medications) - Aspirin Exercise Diet History Results - CT Angiogram (2020): Right adrenal mass, measuring approximately 2 cm, reported as benign. - CT with contrast (Current year): Right adrenal mass reported as enlarging compared to the previous scan, with indeterminate density. - Imaging review notes the mass has been present since at least 2015. [facility] Medical History (Updated 06/06/25 @ 22:02 by Cornel Demarco MD) Pulmonary hypertension Hypersomnia with sleep apnea Complex sleep apnea syndrome Left foot pain Plantar fasciitis, left Calcaneal spur of left foot Other enthesopathy of left foot and ankle Chronic lower back pain Adjustment disorder with anxiety Fecal incontinence Adrenal incidentaloma Elevated liver enzymes Diabetes type 2 Plantar fasciitis History of [place] (myocardial infarction) Uses continuous positive airway pressure (CPAP) ventilation at home Arthritis with psoriasis Chronic fatigue syndrome Prinzmetal angina Surgical History Hx of wisdom tooth extraction Hx of tonsillectomy Hx of cholecystectomy Hx of knee surgery Hx of appendectomy Family History Father No problems noted. Mother No problems noted. Social History Housing: Apartment Alcohol intake: current Alcohol intake frequency: does not drink Patient Tobacco Use Status: Never used Tobacco service: No Current occupational status: disabled Cognitive needs: No Hearing needs: No Vision needs: No Review of Systems Narrative Review of Systems - Constitutional: Reports easy fatigability. - Endocrine: Denies episodes of profuse sweating with headaches unless exerting himself. - Denies easy bruising or purple stretch naidu. - Cardiovascular: Denies palpitations at rest. - Neurological: Reports occasional headaches. - Reports dizziness on standing. - Gastrointestinal: Reports abdominal pain on palpation. - General: Denies frequent infections or inexplicable weight loss. - Weight has been stable. - Psychiatric: Reports anxiety. Physical Exam Exam Exam: Physical Exam - Neck: Supple, no thyroid nodules appreciated on palpation. - Lungs: Auscultation performed. - Heart: Auscultation performed. - Abdomen: Palpation performed. Absence of Cushingoid features. Absence of acromegalic features. Neck exam reveals nl size thyroid about 15 gms. No thyroid nodules palpable. Heart S1 S2, Reg R/R. No M/R G. Skin exam reveals absence of vitiligo or acanthosis nigricans. Visual exam of foot performed. No ulcerations or open lesions. No inter digit maceration or fissuring. No onychomycosis, no callouses. Sensation intact to monofilament exam. Vibratory sensation is normal with 128 Hz tuning fork. Vital Signs: Last Vital Signs Pulse 80 06/19/25 11:19 BP 108/74 06/19/25 11:19 Pulse Ox 97 06/19/25 11:19 Oxygen Delivery Method Room Air 06/19/25 11:19 BMI result Body Mass Index 38.6 Const Other: No cushingoid features. No skin hyperpigmentation or hyperpigmention. Thyroid gland is normal size weighs about 15 g. There are no thyroid nodules.. Assessment & Plan Assessment & Plan (1) Adrenal incidentaloma: Code(s): E27.8 - Other specified disorders of adrenal gland Category: Medical Plan: This is a 54-year-old white male with a history of a right adrenal mass presence is 2016 but recently read with contrast as being indetermine in appearance. Unclear whether any hormonal workup was done in the past Plan is to check plasma metanephrines, renin, aldosterone, performed 1 mg dexamethasone suppression test with dexamethasone and cortisol level and DHEAS . We will also repeat CAT scan of the adrenal with adrenal protocol washout to better characterize Plan Assessment and Plan 1. Right Adrenal Mass The patient presents with a right adrenal mass, reportedly present since 2015. A CT scan from 2020 showed a 2 cm benign-appearing mass, while a recent CT reported enlargement and indeterminate density. The chronicity makes adrenal carcinoma highly unlikely. However, the reported enlargement and indeterminate features warrant further investigation to rule out a functional tumor (hormone-secreting) and confirm its benign nature. The plan is to first obtain and review the reported MRI [facility], which may provide definitive characterization via in-phase/ujw-gp-iqtcl imaging. A hormonal workup will be initiated to assess for hormone excess, including an uszqliczxfe-nr-puvqs ratio (to screen for hyperaldosteronism), plasma metanephrines (to rule out pheochromocytoma), and a 1 mg overnight dexamethasone suppression test (to rule out autonomous cortisol secretion) as well as a DHEAS The labs will be ordered with specific timing instructions to ensure accuracy. If surgery is indicated, a referral will be made to Dr. Stark at [facility], a high-volume endocrine surgeon. 3. Hypertension The patient is on three medications and his blood pressure appears to be contr olled. The adrenal workup will investigate for a potential secondary cause (hyperaldosteronism, pheochromocytoma, or cortisol excess). The patient had an opportunity to ask questions regarding treatment plan. The patient expressed understanding and agreement with the above treatment plan. Patient was informed and verbally consented to the use of an ambient scribe for clinic note documentation during this visit. Discussion Notes I had a detailed discussion with the patient regarding the finding of a right adrenal mass. I explained the anatomy and function of the adrenal glands, including the hormones produced by the cortex (aldosterone, cortisol) and medulla (epinephrine-like substances). I outlined the two main questions to address with an adrenal incidentaloma: whether it is malignant and whether it is hormonally active, as a 'yes' to either would likely necessitate surgical removal. I reassured the patient that given the mass has been present since at least 2015, adrenal cancer is extremely unlikely. I explained the plan to investigate this further, starting with obtaining his prior MRI from [facility], which is the preferred next step to avoid unnecessary radiation and may characterize the lesion as benign. I detailed the hormonal workup we will undertake, explaining the rationale for checking plasma metanephrines (for pheochromocytoma), an aldosterone/renin ratio (for hyperaldosteronism), and a dexamethasone suppression test (for autonomous cortisol secretion), and how these conditions could relate to his symptoms of hypertension and anxiety. I spent considerable time explaining the specific, and sometimes complicated, instructions for the lab tests to ensure their accuracy, particularly the need to separate the dexamethasone suppression test from the other hormone tests. I provided the patient with reputable websites (AACE.com, Hormone.org) for further education. We briefly discussed his diabetes/weight management medications, and I advised him to follow up with his PCP regarding those options. Overall, I stressed that while we must be thorough, the most probable outcome is that the adrenal mass is a benign, non-functional incidental finding. The patient understood the plan and his questions were answered. Patient Instructions - Please sign a release of information form before you leave today so that we can get the records of your MRI from [facility]. - You will need to get blood tests done. - Please go to the lab in the morning, around 8:00 AM, to have your blood drawn for the aldosterone, renin, and metanephrine tests. - You will need a separate test for cortisol. - I will send a prescription for one pill of dexamethasone to your pharmacy. - Please wait at least one or two weeks after your first blood draw, then take the dexamethasone pill at 11:00 PM at night. - The next morning, at 8:00 AM, go to the lab to have your blood drawn for cortisol. - It is very important that you do not take the pill and have the cortisol test done on the same day as the other blood tests. - Talk to your primary care doctor about your options for weight loss medications, such as increasing your Ozempic dose or trying a different medica tion. - For more information about your condition, you can visit the websites Hormone.org or the [place] [employer] of Clinical Endocrinology website (AACE.[place]). - We will schedule a follow-up appointment in about two months to review your test results. Orders: Orders DHEA Sulfate 1 Week E27.8 - Other specified disorders of adrenal gland Metanephrines, Plasma 1 Week E27.8 - Other specified disorders of adrenal gland Dexamethasone 2 Weeks E27.8 - Other specified disorders of adrenal gland Cortisol Random 2 Weeks E27.8 - Other specified disorders of adrenal gland Aldosterone 1 Week E27.8 - Other specified disorders of adrenal gland Renin 1 Week E27.8 - Other specified disorders of adrenal gland Medications: New dexamethasone 1 mg PO ONCE 1 tab 0RF Coding Level of Care Code New Pt Level 4 (56679) Add On Problem Visit Only Diagnoses Adrenal incidentaloma E27.8
[2025-06-19 11:19] VITALS: BP 108/74; PULSE 80; O2SAT 97; BMI 38.6
--- OUTSIDE RECORDS SUMMARY | 2025-06-19 12:57 | XMS_ITS | Encounter Summary ---
Author Organization [facility] Address [address] [place] [address] Phone Care Team Providers Care Property Claim Rep Name Role Phone Pcp, Unknown Primary Care Provider Unavailabl e Reason for Referral * MRI/CAT Scan - Closed Specialty Diagnoses / Procedures Referred By Contac t Referred To Contact Radiology Diagnoses Adrenal mass Procedures MRI Abdomen System, Provider Not In, PhD Partners [employer] [address] Referral ID Status Reason Start Date Expiration Date Visits Re quested Visits Authorized [id number] Closed 12/14/2024 12/14/2025 1 1 Encounter Details Date Type Department Care Team (Late st Contact Info) Description 12/14/2024 Transcribe Orders [facility] Department [address] [place] [id number] System, Provider Not In, PhD Partners [address] [address] Adrenal mass (Primary Dx) Social History Tobacco [...] clinician's provided indication for this examination in [facility]: Outside Radiology Order; adrenal mass Review [...] glands documented in this encounter Care Teams Property Claim Rep Relationship Specialty Start Date End Date Pcp, Unknown PCP - General 12/09/24 documented as of this encounter Additional Source Comments The information contained in this document represents components of the legal health record. It is not the complete legal health record.[facility]
--- OUTSIDE RECORDS SUMMARY | 2025-06-19 12:57 | XMS_ITS | Clinical Summary ---
Author Organization [facility] Address [address] [place] [address] Phone Care Team Providers Care Screenplay Writer Name Role Phone Pcp, Unknown Primary Care [...] Devices Not on file Insurance LIDA Dozier [id number] [place] PART [place] [id number] MEDICARE PART [place] [id number] MEDICARE PART A & B MEDICARE PART A & B MEDICARE PART A & B MEDICARE PART A & B Care Teams Screenplay Writer Relationship Specialty Start Date End Date Pcp, Unknown PCP - General 12/09/24 Additional Source Comments The information contained in this document represents components of the legal health record. It is not the complete legal health record.[facility]
--- OUTSIDE RECORDS SUMMARY | 2025-06-19 12:57 | XMS_ITS | Encounter Summary ---
Author Organization [facility] Address [address] [place] [address] Phone Care Team Providers Care Rock Loader Name Role Phone Pcp, Unknown Primary Care Provider Unavailabl e Encounter Details Date Type Department Care Team (Late st Contact Info) Description 12/14/2024 Procedure Pass [facility], [address] [address] Social History Tobacco Use Types Packs/Day Years [...] on filedocumented in this encounter Care Teams Rock Loader Relationship Specialty Start Date End Date Pcp, Unknown PCP - General 12/09/24 documented as of this encounter Additional Source Comments The information contained in this document represents components of the legal health record. It is not the complete legal health record.[facility]
== END 2025-06-19 12:14 | disposition home or self-care (01) ==
LOC: HO.ENCR 11:07
PROVIDERS: PCP Student in an Organized Health Care Education/Training Program; Visit Provider Internal Medicine Endocrinology, Diabetes & Metabolism
DX: E27.8 Other specified disorders of adrenal gland (principal)
CPT/HCPCS: 99204